=== PATIENT | male | born 1955 | race American Indian/Alaskan Native ===

== ENCOUNTER 2020-03-20 07:45 | Inpatient (IN) | payer OTHER, SELFPAY ==
[2020-03-20 09:27] LABS: Basophils % (Auto) 0.3 % (0.0-1.8); Eosinophils % (Auto) 0.1 % (0.0-4.3); Hematocrit 43.5 % (35.5-45.6); Hemoglobin 14.3 gm/dl (11.8-15.2); Lymphocytes # (Auto) 0.7 K/mm3 (1.2-5.4); Lymphocytes % (Auto) 11.4 % (13.4-35.0); Mean Corpuscular HGB Conc 33 % (32-34); Mean Corpuscular Volume 82 fl (84-94); Monocytes # (Auto) 0.4 K/mm3 (0.0-0.8); Monocytes % (Auto) 6.2 % (0.0-7.3); Platelet Count 296 K/mm3 (140-440); Red Blood Count 5.29 M/mm3 (3.65-5.03); Red Cell Distribution Width 14.5 % (13.2-15.2)
--- NOTE | 2020-03-20 09:37 | XRay Report ---
CHEST 2 VIEWS 0930 INDICATION / CLINICAL INFORMATION: Upper respiratory systems, cough, shortness of breath, duration 4- 5 days COMPARISON: None available. FINDINGS: SUPPORT DEVICES: None. HEART / MEDIASTINUM: No significant abnormality. LUNGS / PLEURA: Lateral view is blurred by motion. No definite pleural effusions are seen. Bibasilar atelectatic changes are noted. Bilateral patchy areas of pulmonary opacity are seen which could repre sent patchy pneumonic infiltrate. No dense consolidation is seen. The possibility of viral pneumonia certainly cannot be excluded. No pneumothorax. ADDITIONAL FINDINGS: No significant additional findings. IMPRESSION: Bilateral patchy possible infiltrates as discussed above Signer Name: Chris Terry MD Signed: 03/20/2020 9:33 AM Workstation Name: [id number]
--- NOTE | 2020-03-20 09:40 | Emergency Department Report ---
ED Shortness of Breath HPI - General Chief Complaint: Dyspnea/Respdistress Stated Complaint: ABRAHAM Time Seen by Provider: 03/20/20 08:40 Source: patient Mode of arrival: Ambulatory Limitations: No Limitations - History of Present Illness Initial Comments: Patient is a 64-year-old male presents emergency room with complaints of shortness of breath that began this morning. He states he has had cold-like symptoms for the last 3 to 4 days. He states that this morning when he woke up he began to feel short of breath. He states that when he walked to the bathroom from his bedroom which is a short distance he began to feel short of breath. He has associated dry cough and chills. He denies any nausea, vomiting, diarrhea, chest pain, abdominal pain. He denies any known sick contacts. He denies any recent travel. He denies any past medical history. No allergies to medications. He denies any recent surgery, recent immobilization, hormone use, recent travel. - Related Data Home Medications Medication Instructions Recorded Confirmed Last Taken No Known Home Medications [No 03/20/20 03/20/20 Unknown Reported Home Medications] Allergies Allergy/AdvReac Type Severity Reaction Status Date / Time No Known Allergies Allergy Unverified 03/20/20 08:00 ED Review of Systems ROS: Stated complaint: ABRAHAM Other details as noted in HPI Comment: All other systems reviewed and negative ED Past Medical Hx - Past Medical History Hx Hypertension: Yes - Surgical History Additional Surgical History: right ankle - Social History Smoking Status: Never Smoker - Medications Home Medications: Home Medications Medication Instructions Recorded Confirmed Last Taken Type No Known Home Medications [No 03/20/20 03/20/20 Unknown History Reported Home Medications] ED Physical Exam - General Limitations: No Limitations General appearance: alert, in no apparent distress - Head Head exam: Present: atraumatic, normocephalic - Eye Eye exam: Present: normal appearance - ENT ENT exam: Present: mucous membranes moist - Respiratory Respiratory exam: Present: other (poor inspiratory effort). Absent: respiratory distress, wheezes, rales, rhonchi, stridor, chest wall tenderness, accessory muscle use, prolonged expiratory - Cardiovascular Cardiovascular Exam: Present: regular rate, normal rhythm, normal heart sounds. Absent: systolic murmur, diastolic murmur, rubs, gallop - Neurological Exam Neurological exam: Present: alert, oriented X3 - Psychiatric Psychiatric exam: Present: normal affect, normal mood - Skin Skin exam: Present: warm, dry, intact ED Course Vital Signs 03/20/20 03/20/20 03/20/20 07:57 11:17 11:42 Temperature 98.1 F 98.5 F Pulse Rate 89 87 Respiratory 19 20 20 Rate Blood Pressure 186/116 Blood Pressure 176/105 [Right] O2 Sat by Pulse 92 92 Oximetry - Consultations Consultation #1: 03/20/20 11:[address] Cervantes, ER attending who agrees with admission 03/20/20 11:[address] Corona, hospitalist who will accept and resume care of patient, will admit to hospital service ED Medical Decision Making - Lab Data Result diagrams: 03/20/20 09:11 03/20/20 10:05 Vital Signs 03/20/20 03/20/20 03/20/20 07:57 11:17 11:42 Temperature 98.1 F 98.5 F Pulse Rate 89 87 Respiratory 19 20 20 Rate Blood Pressure 186/116 Blood Pressure 176/105 [Right] O2 Sat by Pulse 92 92 Oximetry Lab Results 03/20/20 03/20/20 03/20/20 Range/Units 09:11 09:11 10:05 WBC 6.0 (4.5-11.0) K/mm3 RBC 5.29 H (3.65-5.03) M/mm3 Hgb 14.3 (11.8-15.2) gm/dl Hct 43.5 (35.5-45.6) % MCV 82 L (84-94) fl MCH 27 L (28-32) pg MCHC 33 (32-34) % RDW 14.5 (13.2-15.2) % Plt Count 296 (140-440) K/mm3 Lymph % (Auto) 11.4 L (13.4-35.0) % Granite % (Auto) 6.2 (0.0-7.3) % Eos % (Auto) 0.1 (0.0-4.3) % Baso % (Auto) 0.3 (0.0-1.8) % Lymph # (Auto) 0.7 L (1.2-5.4) K/mm3 Granite # (Auto) 0.4 (0.0-0.8) K/mm3 Eos # (Auto) 0.0 (0.0-0.4) K/mm3 Baso # (Auto) 0.0 (0.0-0.1) K/mm3 Seg Neutrophils % 82.0 H (40.0-70.0) % Seg Neutrophils # 4.9 (1.8-7.7) K/mm3 D-Dimer 557.35 H (0-234) ng/mlDDU Sodium 135 L (137-145) mmol/L Potassium 4.0 (3.6-5.0) mmol/L Chloride 96.8 L (98-107) mmol/L Carbon Dioxide 26 (22-30) mmol/L Anion Gap 16 mmol/L BUN 12 (9-20) mg/dL Creatinine 1.1 (0.8-1.3) mg/dL Estimated GFR > 60 ml/min BUN/Creatinine Ratio 11 % Glucose 125 H (75-100) mg/dL Calcium 9.5 (8.4-10.2) mg/dL Ferritin (30.0-300.0) ng/mL Total Bilirubin 0.40 (0.1-1.2) mg/dL AST 58 H (5-40) units/L ALT 30 (7-56) units/L Alkaline Phosphatase 81 (35-129) units/L Lactate Dehydrogenase (91-180) units/L C-Reactive Protein (0.00-1.30) mg/dL NT-Pro-B Natriuret Pep (0-900) pg/mL Total Protein 9.2 H (6.3-8.2) g/dL Albumin 3.9 (3.9-5) g/dL Albumin/Globulin Ratio 0.7 % Procalcitonin (<0.15) ng/mL Coronavirus (PCR) (Negative) 03/20/20 03/20/20 03/20/20 Range/Units 10:05 10:05 10:05 WBC (4.5-11.0) K/mm3 RBC (3.65-5.03) M/mm3 Hgb (11.8-15.2) gm/dl Hct (35.5-45.6) % MCV (84-94) fl MCH (28-32) pg MCHC (32-34) % RDW (13.2-15.2) % Plt Count (140-440) K/mm3 Lymph % (Auto) (13.4-35.0) % Granite % (Auto) (0.0-7.3) % Eos % (Auto) (0.0-4.3) % Baso % (Auto) (0.0-1.8) % Lymph # (Auto) (1.2-5.4) K/mm3 Granite # (Auto) (0.0-0.8) K/mm3 Eos # (Auto) (0.0-0.4) K/mm3 Baso # (Auto) (0.0-0.1) K/mm3 Seg Neutrophils % (40.0-70.0) % Seg Neutrophils # (1.8-7.7) K/mm3 D-Dimer (0-234) ng/mlDDU Sodium (137-145) mmol/L Potassium (3.6-5.0) mmol/L Chloride (98-107) mmol/L Carbon Dioxide (22-30) mmol/L Anion Gap mmol/L BUN (9-20) mg/dL Creatinine (0.8-1.3) mg/dL Estimated GFR ml/min BUN/Creatinine Ratio % Glucose 115 H (75-100) mg/dL Calcium (8.4-10.2) mg/dL Ferritin 838.1 H (30.0-300.0) ng/mL Total Bilirubin (0.1-1.2) mg/dL AST (5-40) units/L ALT (7-56) units/L Alkaline Phosphatase (35-129) units/L Lactate Dehydrogenase 471 H (91-180) units/L C-Reactive Protein 4.30 H (0.00-1.30) mg/dL NT-Pro-B Natriuret Pep 133.0 (0-900) pg/mL Total Protein (6.3-8.2) g/dL Albumin (3.9-5) g/dL Albumin/Globulin Ratio % Procalcitonin < 0.05 (<0.15) ng/mL Coronavirus (PCR) (Negative) 03/20/20 Range/Units 11:17 WBC (4.5-11.0) K/mm3 RBC (3.65-5.03) M/mm3 Hgb (11.8-15.2) gm/dl Hct (35.5-45.6) % MCV (84-94) fl MCH (28-32) pg MCHC (32-34) % RDW (13.2-15.2) % Plt Count (140-440) K/mm3 Lymph % (Auto) (13.4-35.0) % Granite % (Auto) (0.0-7.3) % Eos % (Auto) (0.0-4.3) % Baso % (Auto) (0.0-1.8) % Lymph # (Auto) (1.2-5.4) K/mm3 Granite # (Auto) (0.0-0.8) K/mm3 Eos # (Auto) (0.0-0.4) K/mm3 Baso # (Auto) (0.0-0.1) K/mm3 Seg Neutrophils % (40.0-70.0) % Seg Neutrophils # (1.8-7.7) K/mm3 D-Dimer (0-234) ng/mlDDU Sodium (137-145) mmol/L Potassium (3.6-5.0) mmol/L Chloride (98-107) mmol/L Carbon Dioxide (22-30) mmol/L Anion Gap mmol/L BUN (9-20) mg/dL Creatinine (0.8-1.3) mg/dL Estimated GFR ml/min BUN/Creatinine Ratio % Glucose (75-100) mg/dL Calcium (8.4-10.2) mg/dL Ferritin (30.0-300.0) ng/mL Total Bilirubin (0.1-1.2) mg/dL AST (5-40) units/L ALT (7-56) units/L Alkaline Phosphatase (35-129) units/L Lactate Dehydrogenase (91-180) units/L C-Reactive Protein (0.00-1.30) mg/dL NT-Pro-B Natriuret Pep (0-900) pg/mL Total Protein (6.3-8.2) g/dL Albumin (3.9-5) g/dL Albumin/Globulin Ratio % Procalcitonin (<0.15) ng/mL Coronavirus (PCR) Positive A (Negative) - Radiology Data Radiology results: report reviewed Ordering Physician: MARINE GR Date of Service: 03/20/20 Procedure(s): XR chest routine 2V Accession Number(s): [id number] cc: MARINE GR Fluoro Time In Minutes: CHEST 2 VIEWS 0930 INDICATION / CLINICAL INFORMATION: Upper respiratory systems, cough, shortness of breath, duration 4-5 days COMPARISON: None available. FINDINGS: SUPPORT DEVICES: None. HEART / MEDIASTINUM: No significant abnormality. LUNGS / PLEURA: Lateral view is blurred by motion. No definite pleural effusions are seen. Bibasilar atelectatic changes are noted. Bilateral patchy areas of pulmonary opacity are seen which could represent patchy pneumonic infiltrate. No dense consolidation is seen. The possibility of viral pneumonia certainly cannot be excluded. No pneumothorax. ADDITIONAL FINDINGS: No significant additional findings. IMPRESSION: Bilateral patchy possible infiltrates as discussed above Signer Name: Chris Terry MD Signed: 03/20/2020 9:33 AM Workstation Name: [id number] Transcribed By: GJ Dictated By: Chris Terry MD Electronically Authenticated By: Chris Terry MD Signed Date/Time: 03/20/20932 DD/ 0 TD/TT: - Medical Decision Making Patient is a 64-year-old male presents emergency room with complaints of shortness of breath that began this morning. He states he has had cold-like symptoms for the last 3 to 4 days. He states that this morning when he woke up he began to feel short of breath. He states that when he walked to the bathroom from his bedroom which is a short distance he began to feel short of breath. He has associated dry cough and chills. He denies any nausea, vomiting, diarrhea, chest pain, abdominal pain. He denies any known sick contacts. He denies any recent travel. He denies any past medical history. No allergies to medications. He denies any recent surgery, recent immobilization, hormone use, recent travel. Vitals with elevated blood pressure and hypoxia. Patient is 92% on room air and has no history of any lung conditions. Initial labs are stable. Chest x-ray Bilateral patchy possible infiltrates as discussed above. Chest x-ray is concerning for Covid 19 pneumonia, patient is 64 years old, his oxygen saturation is 92% on room air, patient meets admission criteria. Patient given ceftriaxone, azithromycin, Zofran because he began to feel nauseated. spoke to Dr. Cervantes, ER attending who agrees with admission spoke to Dr. Corona, hospitalist who will accept and resume care of patient, will admit to hospital service - Differential Diagnosis PNA, URI, viral syndrome, bronchitis, COVID 19, CHF, pleural effusion Critical care attestation.: If time is entered above; I have spent that time in minutes in the direct care of this critically ill patient, excluding procedure time. ED Disposition Clinical Impression: Hypoxia, Suspected COVID-19 virus infection Bilateral pneumonia Qualifiers: Pneumonia type: due to unspecified organism Lung location: unspecified part of lung Qualified Code(s): J18.9 - Pneumonia, unspecified organism Disposition: 09 OP ADMIT IP TO THIS HOSP Is pt being admited?: Yes Does the pt Need Aspirin: No Condition: Fair Time of Disposition: 11:34
[2020-03-20] MEDS ORDERED: cefTRIAXone/NS 2 GM/100 ML 2 GM/100 ML BAG IV ONE (09:41)
[2020-03-20 09:50] LABS: Alanine Aminotransferase 30 units/L (7-56); Albumin 3.9 g/dL (3.9-5); BUN/Creatinine Ratio 11; Blood Urea Nitrogen 12 mg/dL (9-20); Calcium 9.5 mg/dL (8.4-10.2); Hemolysis Index 1
[2020-03-20] MEDS ORDERED: AZITHROMYCIN 500 MG in SODIUM CHLORIDE 0.9% 250ML 250 ML IV ONE (10:00)
[2020-03-20] MEDS ORDERED: ONDANSETRON 4 MG/2 ML INJ IV ONE (11:31)
[2020-03-20] MEDS ORDERED: dexAMETHasone 4 MG/ML VIAL IV ONE (11:44)
[2020-03-20 11:58] LABS: C-Reactive Protein 4.3 mg/dL (0.00-1.30)
[2020-03-20] MEDS ORDERED: ACETAMINOPHEN 325 MG TAB PO PRN (12:00)
[2020-03-20] MEDS ORDERED: ONDANSETRON 4 MG/2 ML INJ IV PRN (12:00)
--- NOTE | 2020-03-20 12:00 | History and Physical Report ---
History of Present Illness Chief complaint: I cannot breathe History of present illness: 64 YO Male with Obesity Hypoventilation Syndrome, HTN presents to ED for evaluation. Patient states that he has experienced shortness of breath over the past 3 to 4 days with progressively worsening symptoms over the same timeframe. Patient states that he awoke from sleep this morning feeling more short of breath. Patient knowledges dyspnea with exertion, decreased exercise tolerance, fatigue, malaise, muscle aches, dry cough. Patient transported to [facility] via private vehicle for further care and evaluation. Patient seen and evaluated in the emergency department. All lab and imaging studies reviewed. Patient was found to have a pulse oximetry of 87% with exertion on room air which is consistent with acute hypoxemic respiratory failure. Patient chest x-ray showed evidence of bilateral pneumonia. Patient admitted to medical floor and initiated on pneumonia protocol as well as coronavirus protocol. Coronavirus PC R ordered in the emergency department. Patient denies fever, chills, chest pain, palpitations, skin rash, recent ill contacts, or known exposure to COVID- 19. No prior admission for review. No medication listed at time of admission for reconciliation. Advanced care planning conducted in ED. Past History Past Medical History: hypertension, other (See HPI) Past Surgical History: Other (Right ankle surgery) Social history: single Family history: denies: no significant family history Medications and Allergies Allergies Allergy/AdvReac Type Severity Reaction Status Date / Time No Known Allergies Allergy Unverified 03/20/20 08:00 Home Medications Medication Instructions Recorded Confirmed Last Taken Type No Known Home Medications [No 03/20/20 03/20/20 Unknown History Reported Home Medications] Active Meds: Active Medications Acetaminophen (Tylenol) 650 mg PO Q4H PRN PRN Reason: Pain MILD(1-3)/Fever >100.5/MORGAN Heparin Sodium (Porcine) (Heparin) 5,000 unit SUB-Q Q12HR NAA Ceftriaxone Sodium (Rocephin/Ns 2 Gm/100 Ml) 2 gm in 100 mls @ 200 mls/hr IV Q24HR NAA; Protocol Azithromycin 500 mg/ Sodium (Chloride) 250 mls @ 250 mls/hr IV Q24HR NAA; Pr otocol Ondansetron HCl (Zofran) 4 mg IV Q8H PRN PRN Reason: Nausea And Vomiting Sodium Chloride (Sodium Chloride Flush Syringe 10 Ml) 10 ml IV BID NAA Sodium Chloride (Sodium Chloride Flush Syringe 10 Ml) 10 ml IV PRN PRN PRN Reason: LINE FLUSH Review of Systems Constitutional: fatigue, weakness, malaise, no weight loss, no weight gain, no fever, no chills Ears, nose, mouth and throat: no ear pain, no ear discharge, no tinnitis, no decreased hearing, no nose pain Cardiovascular: no chest pain, no orthopnea, no edema, no syncope Respiratory: cough, shortness of breath, dyspnea on exertion, no excessive sputum, no hemoptysis, no congestion, no pain, no pain on inspiration Gastrointestinal: no nausea, no vomiting, no diarrhea, no constipation Genitourinary Male: no dysuria, no hematuria, no flank pain, no discharge, no urinary frequency, no urinary hesitancy, no nocturia Rectal: no pain, no incontinence, no bleeding Musculoskeletal: no neck stiffness, no arm numbness/tingling, no low back pain, no shooting leg pain Integumentary: no rash, no pruritis, no redness, no sores, no wounds Neurological: no head injury, no transient paralysis, no paralysis, no weakness, no parathesias, no tingling, no seizures Psychiatric: no anxiety, no memory loss, no sleep disturbances, no hypersomnia, no change in libido, no suicidal ideation Endocrine: no cold intolerance, no heat intolerance, no excessive thirst, no polyuria, no nocturia, no excessive sweating Hematologic/Lymphatic: no easy bruising, no easy bleeding Allergic/Immunologic: no urticaria, no wheezing Exam - Constitutional Vitals: Temp Pulse Resp BP Pulse Ox 98.5 F 87 20 176/105 92 03/20/20 11:17 03/20/20 11:17 03/20/20 11:42 03/20/20 11:17 03/20/20 11:17 General appearance: Present: mild distress, obese - EENT Eyes: Present: PERRL ENT: hearing intact, clear oral mucosa - Neck Neck: Present: supple, normal ROM - Respiratory Respiratory effort: labored, accessory muscle use Respiratory: bilateral: diminished, rhonchi - Cardiovascular Heart Sounds: Present: S1 & S2. Absent: rub, click - Extremities Extremities: pulses symmetrical, No edema Peripheral Pulses: within normal limits - Abdominal General gastrointestinal: Present: soft, non-tender, non-distended, normal bowel sounds Male genitourinary: Present: normal - Integumentary Integumentary: Present: clear, warm, dry - Musculoskeletal Musculoskeletal: gait normal, strength equal bilaterally - Psychiatric Psychiatric: appropriate mood/affect, intact judgment & insight - Neurologic Neurologic: CNII-XII intact, moves all extremities Results - Labs CBC & Chem 7: 03/20/20 09:11 03/20/20 10:05 Labs: Abnormal lab results 03/20/20 03/20/20 03/20/20 Range/Units 09:11 09:11 10:05 RBC 5.29 H (3.65-5.03) M/mm3 MCV 82 L (84-94) fl MCH 27 L (28-32) pg Lymph % (Auto) 11.4 L (13.4-35.0) % Lymph # (Auto) 0.7 L (1.2-5.4) K/mm3 Seg Neutrophils % 82.0 H (40.0-70.0) % D-Dimer 557.35 H (0-234) ng/mlDDU Sodium 135 L (137-145) mmol/L Chloride 96.8 L (98-107) mmol/L Glucose 125 H (75-100) mg/dL Ferritin (30.0-300.0) ng/mL AST 58 H (5-40) units/L Lactate Dehydrogenase (91-180) units/L C-Reactive Protein (0.00-1.30) mg/dL Total Protein 9.2 H (6.3-8.2) g/dL 03/20/20 03/20/20 Range/Units 10:05 10:05 RBC (3.65-5.03) M/mm3 MCV (84-94) fl MCH (28-32) pg Lymph % (Auto) (13.4-35.0) % Lymph # (Auto) (1.2-5.4) K/mm3 Seg Neutrophils % (40.0-70.0) % D-Dimer (0-234) ng/mlDDU Sodium (137-145) mmol/L Chloride (98-107) mmol/L Glucose 115 H (75-100) mg/dL Ferritin 838.1 H (30.0-300.0) ng/mL AST (5-40) units/L Lactate Dehydrogenase 471 H (91-180) units/L C-Reactive Protein 4.30 H (0.00-1.30) mg/dL Total Protein (6.3-8.2) g/dL Assessment and Plan - Patient Problems (1) Acute hypoxemic respiratory failure Current Visit: Yes Status: Acute Plan to address problem: Supplemental oxygen, nebulizer therapy via MDI spacer, prone positioning while in bed, incentive spirometry, chest x-ray. Supportive care. Pulmonary toilet. (2) Obesity hypoventilation syndrome Current Visit: Yes Status: Acute Plan to address problem: Balanced diet, increase physical activity at discharge, outpatient pulmonary follow-up for sleep study. (3) Bilateral pneumonia Current Visit: Yes Status: Acute Qualifiers: Pneumonia type: due to unspecified organism Lung location: unspecified part of lung Qualified Code(s): J18.9 - Pneumonia, unspecified organism Plan to address problem: Pneumonia protocol: Chest x-ray, IV antibiotic therapy, nebulizer therapy, pulse oximetry, supportive care. (4) Suspected COVID-19 virus infection Current Visit: Yes Status: Acute Plan to address problem: Coronavirus protocol: Contact precautions, isolation precautions, IV steroid therapy, IV antibiotic therapy, prone positioning while in bed, supplemental oxygen, pulse oximetry. (5) DVT prophylaxis Current Visit: Yes Status: Acute Plan to address problem: SCD to bilateral lower extremities while in bed, patient is ambulatory. (6) Advance care planning Current Visit: Yes Status: Acute Plan to address problem: Disease education conducted, patient is full code, prognosis discussed, care plan discussed, patient knowledges understanding and agreement with care plan, +30 minutes.
[2020-03-20] MEDS: methylPREDNISolone Sod Succinate 40 MG/1 ML INJ IV SCH ×2 (15:13→22:09)
[2020-03-20] MEDS: HEPARIN 5,000 UNIT/1 ML VIAL SUB-Q SCH (22:08)
[2020-03-21] MEDS: methylPREDNISolone Sod Succinate 40 MG/1 ML INJ IV SCH ×3 (05:35→22:02)
[2020-03-21 06:28] LABS: Basophils % (Auto) 0.2 % (0.0-1.8); Hematocrit 40.2 % (35.5-45.6); Hemoglobin 13.1 gm/dl (11.8-15.2); Lymphocytes # (Auto) 0.8 K/mm3 (1.2-5.4); Lymphocytes % (Auto) 16.3 % (13.4-35.0); Mean Corpuscular HGB Conc 33 % (32-34); Mean Corpuscular Volume 82 fl (84-94); Monocytes # (Auto) 0.4 K/mm3 (0.0-0.8); Monocytes % (Auto) 7.6 % (0.0-7.3); Platelet Count 330 K/mm3 (140-440); Red Blood Count 4.88 M/mm3 (3.65-5.03); Red Cell Distribution Width 14.6 % (13.2-15.2)
[2020-03-21 06:44] LABS: Alanine Aminotransferase 30 units/L (7-56); Albumin 3.6 g/dL (3.9-5); BUN/Creatinine Ratio 18; Blood Urea Nitrogen 22 mg/dL (9-20); Calcium 9.1 mg/dL (8.4-10.2); Hemolysis Index 3
[2020-03-21] MEDS ORDERED: AZITHROMYCIN 500 MG in SODIUM CHLORIDE 0.9% 250ML 250 ML IV SCH (10:00)
[2020-03-21] MEDS: HEPARIN 5,000 UNIT/1 ML VIAL SUB-Q SCH (10:59)
[2020-03-21] MEDS: cefTRIAXone/NS 2 GM/100 ML 2 GM/100 ML BAG IV SCH (10:59)
--- NOTE | 2020-03-21 11:13 | Progress Note ---
Assessment and Plan Assessment and plan: Acute hypoxemic respiratory failure Supplemental oxygen, nebulizer therapy via MDI spacer, prone positioning while in bed, incentive spirometry, chest x-ray. Supportive care. Pulmonary toilet. Obesity hypoventilation syndrome Balanced diet, increase physical activity at discharge, outpatient pulmonary follow-up for sleep study. Bilateral pneumonia Pneumonia protocol: Chest x-ray, IV antibiotic therapy, nebulizer therapy, pulse oximetry, supportive care. COVID-19 virus infection Coronavirus protocol: Contact precautions, isolation precautions, IV steroid therapy, IV antibiotic therapy, prone positioning while in bed, supplemental oxygen, pulse oximetry. Check inflammatory markers and consult ID. Covid testing positive on 03/20 DVT prophylaxis SCD to bilateral lower extremities while in bed, patient is ambulatory. Add Lovenox History Interval history: No new issues overnight. Hospitalist Physical - Constitutional Vitals: Temp Pulse Resp BP Pulse Ox 97.9 F 66 20 168/106 96 03/21/20 05:33 03/21/20 05:33 03/21/20 05:33 03/21/20 05:33 03/21/20 08:41 General appearance: Present: mild distress, obese - EENT Eyes: Present: PERRL, EOM intact ENT: hearing intact, clear oral mucosa, dentition normal - Neck Neck: Present: supple, normal ROM - Respiratory Respiratory effort: normal Respiratory: bilateral: CTA - Cardiovascular Rhythm: regular Heart Sounds: Present: S1 & S2. Absent: gallop, rub - Extremities Extremities: no ischemia, No edema, Full ROM - Abdominal General gastrointestinal: soft, non-tender, non-distended, normal bowel sounds - Integumentary Integumentary: Present: clear, warm, dry - Neurologic Neurologic: CNII-XII intact, moves all extremities Results - Labs CBC & Chem 7: 03/21/20 05:02 03/21/20 05:02 Labs: Laboratory Last Values WBC 5.1 K/mm3 (4.5-11.0) 03/21/20 05:02 RBC 4.88 M/mm3 (3.65-5.03) 03/21/20 05:02 Hgb 13.1 gm/dl (11.8-15.2) 03/21/20 05:02 Hct 40.2 % (35.5-45.6) 03/21/20 05:02 MCV 82 fl (84-94) L 03/21/20 05:02 MCH 27 pg (28-32) L 03/21/20 05:02 MCHC 33 % (32-34) 03/21/20 05:02 RDW 14.6 % (13.2-15.2) 03/21/20 05:02 Plt Count 330 K/mm3 (140-440) 03/21/20 05:02 Lymph % (Auto) 16.3 % (13.4-35.0) 03/21/20 05:02 Hernando % (Auto) 7.6 % (0.0-7.3) H 03/21/20 05:02 Eos % (Auto) 0.0 % (0.0-4.3) 03/21/20 05:02 Baso % (Auto) 0.2 % (0.0-1.8) 03/21/20 05:02 Lymph # (Auto) 0.8 K/mm3 (1.2-5.4) L 03/21/20 05:02 [place]ando # (Auto) 0.4 K/mm3 (0.0-0.8) 03/21/20 05:02 Eos # (Auto) 0.0 K/mm3 (0.0-0.4) 03/21/20 05:02 Baso # (Auto) 0.0 K/mm3 (0.0-0.1) 03/21/20 05:02 Seg Neutrophils % 75.9 % (40.0-70.0) H 03/21/20 05:02 Seg Neutrophils # 3.8 K/mm3 (1.8-7.7) 03/21/20 05:02 D-Dimer 557.35 ng/mlDDU (0-234) H 03/20/20 10:05 Sodium 137 mmol/L (137-145) 03/21/20 05:02 Potassium 3.8 mmol/L (3.6-5.0) 03/21/20 05:02 Chloride 101.2 mmol/L (98-107) 03/21/20 05:02 Carbon Dioxide 21 mmol/L (22-30) L 03/21/20 05:02 Anion Gap 19 mmol/L 03/21/20 05:02 BUN 22 mg/dL (9-20) H 03/21/20 05:02 Creatinine 1.2 mg/dL (0.8-1.3) 03/21/20 05:02 Estimated GFR > 60 ml/min 03/21/20 05:02 BUN/Creatinine Ratio 18 % 03/21/20 05:02 Glucose 168 mg/dL (75-100) H 03/21/20 05:02 Calcium 9.1 mg/dL (8.4-10.2) 03/21/20 05:02 Ferritin 838.1 ng/mL (30.0-300.0) H 03/20/20 10:05 Total Bilirubin 0.30 mg/dL (0.1-1.2) 03/21/20 05:02 AST 58 units/L (5-40) H 03/21/20 05:02 ALT 30 units/L (7-56) 03/21/20 05:02 Alkaline Phosphatase 68 units/L (35-129) 03/21/20 05:02 Lactate Dehydrogenase 471 units/L (91-180) H 03/20/20 10:05 C-Reactive Protein 4.30 mg/dL (0.00-1.30) H 03/20/20 10:05 NT-Pro-B Natriuret Pep 133.0 pg/mL (0-900) 03/20/20 10:05 Total Protein 8.5 g/dL (6.3-8.2) H 03/21/20 05:02 Albumin 3.6 g/dL (3.9-5) L 03/21/20 05:02 Albumin/Globulin Ratio 0.7 % 03/21/20 05:02 Procalcitonin < 0.05 ng/mL (<0.15) 03/20/20 10:05 Coronavirus (PCR) Positive (Negative) A 03/20/20 11:17 Microbiology: Microbiology 03/20/20 10:05 Peripheral/Venous Blood Culture - Preliminary NO GROWTH AFTER 24 HOURS 03/20/20 10:05 Peripheral/Venous Blood Culture - Preliminary NO GROWTH AFTER 24 HOURS Fair/IV: Voiding Method Toilet IV Catheter Type [Left INT / Saline Lock Antecubital] Active Medications - Current Medications Current Medications: Generic Name Dose Route Start Last Admin Trade Name Freq PRN Reason Stop Dose Admin Acetaminophen 650 mg 03/20/20 12:00 03/20/20 22:08 Tylenol PO 650 mg Q4H PRN Administration Pain MILD(1-3)/Fever >100.5/MORGAN Heparin Sodium (Porcine) 5,000 unit 03/20/20 22:00 03/21/20 10:59 Heparin SUB-Q 5,000 unit Q12HR NAA Administration Ceftriaxone Sodium 2 gm in 100 mls @ 200 mls/hr 03/21/20 10:00 03/21/20 10:59 Rocephin/Ns 2 Gm/100 Ml IV 200 mls/hr Q24HR NAA Administration Protocol Azithromycin 500 mg/ Sodium 250 mls @ 250 mls/hr 03/21/20 10:00 03/21/20 11:08 Chloride IV 03/24/20 10:59 250 mls/hr Q24HR NAA Administration Protocol Methylprednisolone Sodium Succinate 40 mg 03/20/20 14:00 03/21/20 05:35 Solu-Medrol IV 40 mg Q8HR NAA Administration Ondansetron HCl 4 mg 03/20/20 12:00 Zofran IV Q8H PRN Nausea And Vomiting Sodium Chloride 10 ml 03/20/20 22:00 03/21/20 11:00 Sodium Chloride Flush Syringe 10 Ml IV 10 ml BID NAA Administration Sodium Chloride 10 ml 03/20/20 12:00 Sodium Chloride Flush Syringe 10 Ml IV PRN PRN LINE FLUSH
[2020-03-21 12:01] LABS: C-Reactive Protein 4.1 mg/dL (0.00-1.30)
[2020-03-21] MEDS: ENOXAPARIN 40 MG/0.4 ML INJ SUB-Q SCH (22:01)
[2020-03-22] MEDS: methylPREDNISolone Sod Succinate 40 MG/1 ML INJ IV SCH ×3 (05:34→23:01)
[2020-03-22 06:40] LABS: Basophils % (Auto) 0.1 % (0.0-1.8); Hematocrit 39.6 % (35.5-45.6); Hemoglobin 12.9 gm/dl (11.8-15.2); Lymphocytes % (Auto) 7.7 % (13.4-35.0); Mean Corpuscular HGB Conc 33 % (32-34); Mean Corpuscular Volume 82 fl (84-94); Monocytes # (Auto) 0.9 K/mm3 (0.0-0.8); Platelet Count 381 K/mm3 (140-440); Red Blood Count 4.81 M/mm3 (3.65-5.03); Red Cell Distribution Width 14.5 % (13.2-15.2)
[2020-03-22 06:52] LABS: BUN/Creatinine Ratio 23; Blood Urea Nitrogen 28 mg/dL (9-20); Calcium 8.9 mg/dL (8.4-10.2); Hemolysis Index 5
--- NOTE | 2020-03-22 09:34 | Progress Note ---
Assessment and Plan Assessment and plan: Acute hypoxemic respiratory failure Supplemental oxygen, nebulizer therapy via MDI spacer, prone positioning while in bed, incentive spirometry, chest x-ray. Supportive care. Pulmonary toilet. Accelerated hypertension obesity hypoventilation syndrome Balanced diet, increase physical activity at discharge, outpatient pulmonary follow-up for sleep study. Bilateral pneumonia Pneumonia protocol: Chest x-ray, IV antibiotic therapy, nebulizer therapy, pulse oximetry, supportive care. COVID-19 virus infection Coronavirus protocol: Contact precautions, isolation precautions, IV steroid therapy, IV antibiotic therapy, prone positioning while in bed, supplemental oxygen, pulse oximetry. Check inflammatory markers and consult ID. Covid testing positive on 03/20 DVT prophylaxis SCD to bilateral lower extremities while in bed, patient is ambulatory. Continue Lovenox 03/22/2020. Patient with mildly elevated D-dimer of 431, ferritin 743, LDH 350 and CRP 4.1. Patient with minimal oxygen requirements of nasal cannula 2 L at 94%. Change Solu-Medrol to dexamethasone per ID recommendations. Await ID consultation. Anticipate discharge in the next 1 to 2 days if oxygen requirements are minimal. Patient is exhibiting accelerated hypertension. Start Procardia 60 mg daily History Interval history: No new issues overnight. Hospitalist Physical - Constitutional Vitals: Temp Pulse Resp BP Pulse Ox 98.7 F 66 20 182/105 92 03/22/20 04:30 03/22/20 04:30 03/22/20 04:30 03/22/20 04:30 03/22/20 04:30 General appearance: Present: mild distress, obese - EENT Eyes: Present: PERRL, EOM intact ENT: hearing intact, clear oral mucosa, dentition normal - Neck Neck: Present: supple, normal ROM - Respiratory Respiratory effort: normal Respiratory: bilateral: CTA - Cardiovascular Rhythm: regular Heart Sounds: Present: S1 & S2. Absent: gallop, rub - Extremities Extremities: no ischemia, No edema, Full ROM - Abdominal General gastrointestinal: soft, non-tender, non-distended, normal bowel sounds - Integumentary Integumentary: Present: clear, warm, dry - Neurologic Neurologic: CNII-XII intact, moves all extremities Results - Labs CBC & Chem 7: 03/22/20 05:17 03/22/20 05:17 Labs: Laboratory Last Values WBC 12.8 K/mm3 (4.5-11.0) H 03/22/20 05:17 RBC 4.81 M/mm3 (3.65-5.03) 03/22/20 05:17 Hgb 12.9 gm/dl (11.8-15.2) 03/22/20 05:17 Hct 39.6 % (35.5-45.6) 03/22/20 05:17 MCV 82 fl (84-94) L 03/22/20 05:17 MCH 27 pg (28-32) L 03/22/20 05:17 MCHC 33 % (32-34) 03/22/20 05:17 RDW 14.5 % (13.2-15.2) 03/22/20 05:17 Plt Count 381 K/mm3 (140-440) 03/22/20 05:17 Lymph % (Auto) 7.7 % (13.4-35.0) L 03/22/20 05:17 [place] % (Auto) 7.0 % (0.0-7.3) 03/22/20 05:17 Eos % (Auto) 0.0 % (0.0-4.3) 03/22/20 05:17 Baso % (Auto) 0.1 % (0.0-1.8) 03/22/20 05:17 Lymph # (Auto) 1.0 K/mm3 (1.2-5.4) L 03/22/20 05:17 [place] # (Auto) 0.9 K/mm3 (0.0-0.8) H 03/22/20 05:17 Eos # (Auto) 0.0 K/mm3 (0.0-0.4) 03/22/20 05:17 Baso # (Auto) 0.0 K/mm3 (0.0-0.1) 03/22/20 05:17 Seg Neutrophils % 85.2 % (40.0-70.0) H 03/22/20 05:17 Seg Neutrophils # 10.9 K/mm3 (1.8-7.7) H 03/22/20 05:17 D-Dimer 431.56 ng/mlDDU (0-234) H 03/21/20 11:17 Sodium 137 mmol/L (137-145) 03/22/20 05:17 Potassium 4.2 mmol/L (3.6-5.0) 03/22/20 05:17 Chloride 101.2 mmol/L (98-107) 03/22/20 05:17 Carbon Dioxide 24 mmol/L (22-30) 03/22/20 05:17 Anion Gap 16 mmol/L 03/22/20 05:17 BUN 28 mg/dL (9-20) H 03/22/20 05:17 Creatinine 1.2 mg/dL (0.8-1.3) 03/22/20 05:17 Estimated GFR > 60 ml/min 03/22/20 05:17 BUN/Creatinine Ratio 23 % 03/22/20 05:17 Glucose 165 mg/dL (75-100) H 03/22/20 05:17 Calcium 8.9 mg/dL (8.4-10.2) 03/22/20 05:17 Ferritin 743.3 ng/mL (30.0-300.0) H 03/21/20 11:17 Total Bilirubin 0.30 mg/dL (0.1-1.2) 03/21/20 05:02 AST 58 units/L (5-40) H 03/21/20 05:02 ALT 30 units/L (7-56) 03/21/20 05:02 Alkaline Phosphatase 68 units/L (35-129) 03/21/20 05:02 Lactate Dehydrogenase 350 units/L (91-180) H 03/21/20 11:17 C-Reactive Protein 4.10 mg/dL (0.00-1.30) H 03/21/20 11:17 NT-Pro-B Natriuret Pep 133.0 pg/mL (0-900) 03/20/20 10:05 Total Protein 8.5 g/dL (6.3-8.2) H 03/21/20 05:02 Albumin 3.6 g/dL (3.9-5) L 03/21/20 05:02 Albumin/Globulin Ratio 0.7 % 03/21/20 05:02 Procalcitonin < 0.05 ng/mL (<0.15) 03/21/20 11:17 Coronavirus (PCR) Positive (Negative) A 03/20/20 11:17 Microbiology: Microbiology 03/20/20 10:05 Peripheral/Venous Blood Culture - Preliminary NO GROWTH AFTER 24 HOURS 03/20/20 10:05 Peripheral/Venous Blood Culture - Preliminary NO GROWTH AFTER 24 HOURS Fair/IV: Voiding Method Toilet IV Catheter Type [Left INT / Saline Lock Antecubital] Active Medications - Current Medications Current Medications: Generic Name Dose Route Start Last Admin Trade Name Freq PRN Reason Stop Dose Admin Acetaminophen 650 mg 03/20/20 12:00 03/20/20 22:08 Tylenol PO 650 mg Q4H PRN Administration Pain MILD(1-3)/Fever >100.5/MORGAN Azithromycin 500 mg 03/22/20 10:00 Zithromax PO 03/24/20 10:01 QDAY NAA Enoxaparin Sodium 40 mg 03/21/20 22:00 03/21/20 22:01 Enoxaparin SUB-Q 40 mg QDAY@2200 NAA Administration Protocol Ceftriaxone Sodium 2 gm in 100 mls @ 200 mls/hr 03/21/20 10:00 03/21/20 10:59 Rocephin/Ns 2 Gm/100 Ml IV 200 mls/hr Q24HR NAA Administration Protocol Labetalol HCl 10 mg 03/21/20 18:55 03/22/20 05:34 Labetalol IV 10 mg Q3H PRN Administration Hypertension Methylprednisolone Sodium Succinate 40 mg 03/20/20 14:00 03/22/20 05:34 Solu-Medrol IV 40 mg Q8HR NAA Administration Ondansetron HCl 4 mg 03/20/20 12:00 Zofran IV Q8H PRN Nausea And Vomiting Sodium Chloride 10 ml 03/20/20 22:00 03/22/20 05:35 Sodium Chloride Flush Syringe 10 Ml IV 10 ml BID NAA Administration Sodium Chloride 10 ml 03/20/20 12:00 Sodium Chloride Flush Syringe 10 Ml IV PRN PRN LINE FLUSH
[2020-03-22] MEDS: cefTRIAXone/NS 2 GM/100 ML 2 GM/100 ML BAG IV SCH (09:59)
[2020-03-22] MEDS ORDERED: AZITHROMYCIN 250 MG TAB PO SCH (10:00)
[2020-03-22] MEDS: NIFEdipine XL 60 MG TAB PO SCH (10:04)
--- NOTE | 2020-03-22 14:02 | Consultation ---
History of Present Illness - Reason for Consult Consult date: 03/22/20 Suspected COVID Requesting physician: ELIZABETH GEORGE - History of Present Illness The patient is a 64-year-old male with obesity hypoventilation syndrome, hypertension was admitted to the hospital with cough and shortness of breath going on for 3 to 4 days. He was also having some fatigue, muscle aches, came to the hospital, noted to have hypoxia. Next x-ray was suggestive of bilateral pneumonia. Covid test was ordered and resulted positive. Infectious diseases consulted for additional evaluation. He has remained afebrile here. Review of Systems: reviewed in the chart, unable to obtain directly due to PPE preservation and minimize risk of transmission Past History Past Medical History: hypertension, other (See HPI) Past Surgical History: Other (Right ankle surgery) Social history: single Family history: denies: no significant family history Medications and Allergies Allergies Allergy/AdvReac Type Severity Reaction Status Date / Time No Known Allergies Allergy Unverified 03/20/20 08:00 Home Medications Medication Instructions Recorded Confirmed Last Taken Type No Known Home Medications [No 03/20/20 03/20/20 Unknown History Reported Home Medications] Active Meds: Active Medications Acetaminophen (Tylenol) 650 mg PO Q4H PRN PRN Reason: Pain MILD(1-3)/Fever >100.5/MORGAN Last Admin: 03/20/20 22:08 Dose: 650 mg Documented by: Azithromycin (Zithromax) 500 mg PO QDAY [facility] Stop: 03/24/20 10:01 Last Admin: 03/22/20 10:01 Dose: 500 mg Documented by: Enoxaparin Sodium (Enoxaparin) 40 mg SUB-Q QDAY@2200 NAA; Protocol Last Admin: 03/21/20 22:01 Dose: 40 mg Documented by: Ceftriaxone Sodium (Rocephin/Ns 2 Gm/100 Ml) 2 gm in 100 mls @ 200 mls/hr IV Q24HR NAA; Protocol Last Admin: 03/22/20 09:59 Dose: 200 mls/hr Documented by: Labetalol HCl (Labetalol) 10 mg IV Q3H PRN PRN Reason: Hypertension Last Admin: 03/22/20 14:00 Dose: 10 mg Documented by: Methylprednisolone Sodium Succinate (Solu-Medrol) 40 mg IV Q8HR NAA Last Admin: 03/22/20 13:55 Dose: 40 mg Documented by: Nifedipine (Procardia Xl) 60 mg PO QDAY [facility] Last Admin: 03/22/20 10:04 Dose: 60 mg Documented by: Ondansetron HCl (Zofran) 4 mg IV Q8H PRN PRN Reason: Nausea And Vomiting Sodium Chloride (Sodium Chloride Flush Syringe 10 Ml) 10 ml IV BID [facility] Last Admin: 03/22/20 10:01 Dose: 10 ml Documented by: Sodium Chloride (Sodium Chloride Flush Syringe 10 Ml) 10 ml IV PRN PRN PRN Reason: LINE FLUSH Physical Examination - Physical Exam Narrative exam: Physical Exam (reviewed in chart due to PPE conservation and minimize risk of transmission) Constitutional: limited due to PPE conservation strategy Head, Ears, Nose: limited due to PPE conservation strategy Eyes: limited due to PPE conservation strategy Neck: limited due to PPE conservation strategy Oral: limited due to PPE conservation strategy Cardiovascular: limited due to PPE conservation strategy Respiratory: limited due to PPE conservation strategy GI: limited due to PPE conservation strategy Musculoskeletal: limited due to PPE conservation strategy Skin: limited due to PPE conservation strategy Hem/Lymphatic: limited due to PPE conservation strategy Psych: limited due to PPE conservation strategy Neurological: limited due to PPE conservation strategy - Constitutional Vitals: Vital Signs Temp Pulse Resp BP Pulse Ox 98.0 F 69 20 175/97 94 03/22/20 13:53 03/22/20 14:00 03/22/20 13:53 03/22/20 14:00 03/22/20 13:53 Temperature -Last 24 Hours Temperature 98.0 F Temperature 98.7 F Temperature 98.8 F Temperature 98.2 F Results - Labs CBC & Chem 7: 03/22/20 05:17 03/22/20 05:17 Labs: Abnormal lab results 03/22/20 03/22/20 Range/Units 05:17 05:17 WBC 12.8 H (4.5-11.0) K/mm3 MCV 82 L (84-94) fl MCH 27 L (28-32) pg Lymph % (Auto) 7.7 L (13.4-35.0) % Lymph # (Auto) 1.0 L (1.2-5.4) K/mm3 [place] # (Auto) 0.9 H (0.0-0.8) K/mm3 Seg Neutrophils % 85.2 H (40.0-70.0) % Seg Neutrophils # 10.9 H (1.8-7.7) K/mm3 BUN 28 H (9-20) mg/dL Glucose 165 H (75-100) mg/dL - Imaging and Cardiology Chest x-ray: report reviewed, image reviewed (b/l infiltrates) Assessment and Plan Cultures: SARS CoV2 PCR: Positive A/P: 64-year-old male with obesity hypoventilation syndrome, hypertension : #Bilateral pneumonia: Secondary to COVID-19 #Acute hypoxic respiratory failure: On oxygen supplementation Recs: Continue steroids for at least 10 days IV remdesivir for 5 days ordered prophylactic anticoagulation based on d-dimer per hospital protocol trend ferritin, LDH, d-dimer, CRP every 2-3 days for risk stratification and to assess disease progression procalcitonin is low, antibiotics discontinued Astrid Cash MD, FACP [facility] ([facility]) O: [phone] F: [phone]
[2020-03-22] MEDS ORDERED: REMDESIVIR 100 MG VIAL IV ONE (17:00)
[2020-03-22] MEDS ORDERED: REMDESIVIR 200 MG in SODIUM CHLORIDE 0.9% 250ML 250 ML IV ONE (17:00)
[2020-03-22] MEDS: SODIUM CHLORIDE 0.9% 50 ML IVPB IV SCH (17:39)
[2020-03-22] MEDS: ENOXAPARIN 40 MG/0.4 ML INJ SUB-Q SCH (23:01)
[2020-03-23] MEDS: methylPREDNISolone Sod Succinate 40 MG/1 ML INJ IV SCH ×3 (07:27→21:49)
[2020-03-23] MEDS: NIFEdipine XL 60 MG TAB PO SCH (10:05)
--- NOTE | 2020-03-23 11:03 | Progress Note ---
Assessment and Plan - Patient Problems (1) Acute hypoxemic respiratory failure with hypoxia most likely 2/2 to covid 19 infection Current Visit: Yes Status: Acute Plan to address problem: Continue Supplemental oxygen, and bronchodilator advised on significant of incentive spirometer use Respiratory care, abg and chest x-rays (2) Obesity hypoventilation syndrome Current Visit: Yes Status: Acute Plan to address problem: Discussed lifestyle modification including Balanced diet-more fruits and vegetable Weight management with increased physical activity (3) Bilateral pneumonia 2/2 to covid 19 infection Current Visit: Yes Status: Acute Qualifiers: Pneumonia type: due to unspecified organism Lung location: unspecified part of lung Qualified Code(s): J18.9 - Pneumonia, unspecified organism Plan to address problem: empiric IV antibiotic therapy d/c -prolactin is low Chest x-ray-shows bilateral patch infiltrates Respiratory care-bronchodilator ans oxygen supplement PRN (4) COVID-19 virus infection Current Visit: Yes Status: Acute Plan to address problem: Continue airborne and contact isolation Monitor inflammatory makers-ferritin, LDH, CRP every 2 to 3 days ID following f/u with plan of care Continue systemic steroid and IV remdesivir started-complete in 5 days (5) DVT prophylaxis Current Visit: Yes Status: Acute Plan to address problem: SCD to bilateral lower extremities while in bed, patient is ambulatory. (6) Advance care planning Current Visit: Yes Status: Acute Plan to address problem: patient is full code Subjective Date of service: 03/23/20 Principal diagnosis: Shortness of breath Interval history: Patient seen at bedside-on oxygen at 4 liter n/c-patient not in any active distress He reports shortness of breath mostly with activity like going to the bathroom. Reviewed lab, mar, and v/s Objective - Constitutional Vitals: Vital Signs - 12hr 03/23/20 03/23/20 03/23/20 01:06 04:33 09:32 Temperature 98.5 F Pulse Rate 74 Respiratory 20 Rate Blood Pressure 151/92 O2 Sat by Pulse 90 86 94 Oximetry General appearance: Present: mild distress, well-nourished - EENT Eyes: PERRL, EOM intact ENT: hearing intact, clear oral mucosa Ears: bilateral: normal - Neck Neck: supple, normal ROM - Respiratory Respiratory effort: normal, other (Shortness of breath with activities) Respiratory: bilateral: CTA - Breasts Breasts: normal - Cardiovascular Heart rate: 70 Rhythm: regular Heart Sounds: Present: S1 & S2. Absent: gallop, rub Extremities: pulses intact, No edema, normal color, Full ROM - Gastrointestinal General gastrointestinal: Present: soft, non-tender, non-distended, normal bowel sounds - Genitourinary Male genitourinary: normal - Integumentary Integumentary: clear, warm, dry - Musculoskeletal Musculoskeletal: 1, strength equal bilaterally - Neurologic Neurologic: moves all extremities - Psychiatric Psychiatric: appropriate mood/affect, intact judgment & insight, memory intact, cooperative - Allied health notes Allied health notes reviewed: nursing - Labs CBC & Chem 7: 03/22/20 05:17 03/22/20 05:17
[2020-03-23] MEDS: REMDESIVIR 100 MG in SODIUM CHLORIDE 0.9% 250ML 250 ML IV SCH (21:48)
[2020-03-23] MEDS: ENOXAPARIN 40 MG/0.4 ML INJ SUB-Q SCH (21:49)
[2020-03-23] MEDS: SODIUM CHLORIDE 0.9% 50 ML IVPB IV SCH (21:49)
[2020-03-24] MEDS: methylPREDNISolone Sod Succinate 40 MG/1 ML INJ IV SCH ×3 (05:36→22:05)
[2020-03-24] MEDS: NIFEdipine XL 60 MG TAB PO SCH (09:12)
--- NOTE | 2020-03-24 11:47 | Progress Note ---
Assessment and Plan - Patient Problems (1) Acute hypoxemic respiratory failure with hypoxia most likely 2/2 to covid 19 infection Current Visit: Yes Status: Acute Plan to address problem: Continue Supplemental oxygen, and bronchodilator advised on significant of incentive spirometer use Respiratory care, abg and chest x-rays (2) Obesity hypoventilation syndrome Current Visit: Yes Status: Acute Plan to address problem: Discussed lifestyle modification including Balanced diet-more fruits and vegetable Weight management with increased physical activity (3) Bilateral pneumonia 2/2 to covid 19 infection Current Visit: Yes Status: Acute Qualifiers: Pneumonia type: due to unspecified organism Lung location: unspecified part of lung Qualified Code(s): J18.9 - Pneumonia, unspecified organism Plan to address problem: empiric IV antibiotic therapy d/c -prolactin is low Chest x-ray-shows bilateral patch infiltrates Respiratory care-bronchodilator ans oxygen supplement PRN (4) COVID-19 virus infection Current Visit: Yes Status: Acute Plan to address problem: Continue airborne and contact isolation Monitor inflammatory makers-ferritin, LDH, CRP every 2 to 3 days ID following f/u with plan of care Continue systemic steroid and IV remdesivir started-complete in 5 days Remdesivir stated 03/23/20-complete on 03/26/20 (5) DVT prophylaxis Current Visit: Yes Status: Acute Plan to address problem: SCD to bilateral lower extremities while in bed, patient is ambulatory. (6) Advance care planning Current Visit: Yes Status: Acute Plan to address problem: patient is full code - Patient Problems (1) Hypertension Current Visit: Yes Status: Acute Plan to address problem: Monitor blood pressure Continue current treatment plan Add oral hydralazine 50mg BID Will adjust bp med if needed Subjective Date of service: 03/23/20 Principal diagnosis: Shortness of breath Interval history: Patient seen at bedside-on oxygen at 4 liter n/c-patient not in any active distress patient said he is feeling better today. He denies chest pain and calm without sob on oxygen Will complete remdesivir therapy 03/26/20 Reviewed lab, mar, and v/s Objective - Constitutional Vitals: Vital Signs - 12hr 03/24/20 03/24/20 04:03 10:00 Temperature 97.7 F Pulse Rate 72 Respiratory 16 Rate Blood Pressure 174/91 O2 Sat by Pulse 91 91 Oximetry General appearance: Present: no acute distress, well-nourished - EENT Eyes: PERRL, EOM intact ENT: hearing intact, clear oral mucosa Ears: bilateral: normal - Neck Neck: supple, normal ROM - Respiratory Respiratory effort: normal Respiratory: bilateral: diminished (shortness of breath-requiring oxygen) - Breasts Breasts: normal - Cardiovascular Heart rate: 91 Extremities: pulses intact, No edema, normal color, Full ROM - Gastrointestinal General gastrointestinal: Present: soft, non-tender, non-distended, normal bowel sounds - Genitourinary Male genitourinary: normal - Integumentary Integumentary: clear, warm, dry - Musculoskeletal Musculoskeletal: 1, strength equal bilaterally - Neurologic Neurologic: moves all extremities - Psychiatric Psychiatric: appropriate mood/affect, intact judgment & insight, memory intact, cooperative - Allied health notes Allied health notes reviewed: nursing - Labs CBC & Chem 7: 03/22/20 05:17 03/22/20 05:17
[2020-03-24] MEDS: hydrALAZINE 25 MG TAB PO SCH ×2 (12:55→22:05)
[2020-03-24] MEDS: SODIUM CHLORIDE 0.9% 50 ML IVPB IV SCH (22:04)
[2020-03-24] MEDS: ENOXAPARIN 40 MG/0.4 ML INJ SUB-Q SCH (22:04)
[2020-03-24] MEDS: REMDESIVIR 100 MG in SODIUM CHLORIDE 0.9% 250ML 250 ML IV SCH (22:04)
[2020-03-25] MEDS: methylPREDNISolone Sod Succinate 40 MG/1 ML INJ IV SCH (05:18)
[2020-03-25 06:29] LABS: Hematocrit 46.8 % (35.5-45.6); Hemoglobin 14.9 gm/dl (11.8-15.2); Mean Corpuscular HGB Conc 32 % (32-34); Mean Corpuscular Volume 81 fl (84-94); Platelet Count 525 K/mm3 (140-440); Red Blood Count 5.75 M/mm3 (3.65-5.03); Red Cell Distribution Width 14.6 % (13.2-15.2)
[2020-03-25 06:31] LABS: Basophils % (Auto) 0.1 % (0.0-1.8); Lymphocytes # (Auto) 1.1 K/mm3 (1.2-5.4); Lymphocytes % (Auto) 8.1 % (13.4-35.0); Monocytes # (Auto) 1.1 K/mm3 (0.0-0.8); Monocytes % (Auto) 8.4 % (0.0-7.3)
[2020-03-25 06:52] LABS: BUN/Creatinine Ratio 29; Blood Urea Nitrogen 29 mg/dL (9-20); Calcium 8.9 mg/dL (8.4-10.2); Hemolysis Index 6
[2020-03-25] MEDS ORDERED: NIFEdipine XL 60 MG TAB PO SCH (08:47)
[2020-03-25] MEDS: DEXAMETHASONE 4 MG TAB PO SCH (09:28)
[2020-03-25] MEDS: hydrALAZINE 25 MG TAB PO SCH ×3 (09:28→23:15)
[2020-03-25] MEDS: NIFEdipine XL 90 MG TAB PO SCH (09:29)
--- NOTE | 2020-03-25 15:46 | Progress Note ---
Assessment and Plan Cultures: SARS CoV2 PCR: Positive A/P: 64-year-old male with obesity hypoventilation syndrome, hypertension : #Bilateral pneumonia: Secondary to COVID-19 #Acute hypoxic respiratory failure: On oxygen supplementation Recs: Continue steroids for at least 10 days IV remdesivir for 5 days ordered prophylactic anticoagulation based on d-dimer per hospital protocol trend ferritin, LDH, d-dimer, CRP every 2-3 days for risk stratification and to assess disease progression Okay to discharge from infectious disease perspective when stable from a respiratory standpoint. Tirso Woods MD [facility] ([facility]) O: [phone] F: [phone] Subjective Date of service: 03/25/20 Principal diagnosis: Shortness of breath Interval history: Afebrile, white count slightly elevated now 13.4. Cultures remain negative. On 3 L nasal cannula. Objective - Exam Narrative Exam: Physical exam deferred due to PPE conservation strategy. Please refer to primary team's note. - Constitutional Vitals: Vital Signs Temp Pulse Resp BP Pulse Ox 98.6 F 81 18 170/103 97 03/25/20 11:05 03/25/20 11:05 03/25/20 11:05 03/25/20 11:05 03/25/20 11:05 Temperature -Last 24 Hours Temperature 98.6 F Temperature 98.0 F Temperature 98.2 F - Labs CBC & Chem 7: 03/25/20 05:43 03/25/20 05:43 Labs: Abnormal lab results 03/25/20 03/25/20 03/25/20 Range/Units 05:43 05:43 05:43 WBC 13.4 H (4.5-11.0) K/mm3 RBC 5.75 H (3.65-5.03) M/mm3 Hct 46.8 H (35.5-45.6) % MCV 81 L (84-94) fl MCH 26 L (28-32) pg Plt Count 525 H (140-440) K/mm3 Lymph % (Auto) 8.1 L (13.4-35.0) % [place] % (Auto) 8.4 H (0.0-7.3) % Lymph # (Auto) 1.1 L (1.2-5.4) K/mm3 [place] # (Auto) 1.1 H (0.0-0.8) K/mm3 Seg Neutrophils % 83.4 H (40.0-70.0) % Seg Neutrophils # 11.2 H (1.8-7.7) K/mm3 D-Dimer 456.87 H (0-234) ng/mlDDU Carbon Dioxide 20 L (22-30) mmol/L BUN 29 H (9-20) mg/dL Glucose 206 H (75-100) mg/dL
--- NOTE | 2020-03-25 16:26 | Progress Note ---
Assessment and Plan - Patient Problems (1) Pneumonia due to COVID-19 virus Current Visit: Yes Status: Acute Plan to address problem: 03/20 coronavirus PCR positive 03/20 CXR shows bilateral patchy areas of pulmonary opacity which could represent pneumonic infiltrate Infectious disease consulted Supplemental oxygenation as needed Prone to sleep OOB 3 times daily Empiric antibiotic therapy discontinued due to low procalcitonin Monitor inflammatory markers Contact/droplet precautions Remdesivir therapy 03/23 through 03/26 Pulmonary hygiene (2) Acute hypoxemic respiratory failure Current Visit: Yes Status: Acute Plan to address problem: Supplemental oxygenation as needed Continue bronchodilator Pulmonary hygiene (3) Hypertension Current Visit: Yes Status: Chronic Plan to address problem: Nifedipine and Procardia, titrate as needed Blood pressure monitoring per protocol As needed vasotec for SBP >160 (4) Obesity hypoventilation syndrome Current Visit: Yes Status: Chronic Plan to address problem: Supplemental oxygenation as needed Follow-up outpatient with pulmonology for sleep study and PFTs Weight management with increase physical activity and dietary changes (5) DVT prophylaxis Current Visit: Yes Status: Acute Plan to address problem: SCDs to bilateral lower extremities while in bed Lovenox subcu History Interval history: 64 YO Male with Obesity Hypoventilation Syndrome, HTN presented with shortness of breath over the past 3 to 4 days, dyspnea with exertion, decreased exercise tolerance, fatigue, malaise, muscle aches, and dry cough on 03/20. Patient was found to have a pulse oximetry of 87% with exertion on room air which is consistent with acute hypoxemic respiratory failure. Patient chest x-ray showed evidence of bilateral pneumonia. Patient admitted to medical floor and initiated on pneumonia protocol as well as coronavirus protocol. Infectious disease was consulted. His COVID-19 PCR was positive 03/20. This morning my examination patient remains on supplemental oxygenation and he states that he now feels much better. 03/25: Methylprednisone changed to p.o. dexamethasone p.o. 03/24: 4L NC with no active distress 03/23: 4 L nasal cannula with reported increased shortness of breath with exertion 03/22: Initiated remdesivir therapy and discontinued antibiotic therapy 03/20: methylprednisone IV every 8 hours Hospitalist Physical - Constitutional Vitals: Temp Pulse Resp BP Pulse Ox 98.6 F 81 18 170/103 97 03/25/20 11:05 03/25/20 11:05 03/25/20 11:05 03/25/20 11:05 03/25/20 11:05 General appearance: Present: no acute distress, well-nourished - EENT Eyes: Present: PERRL, EOM intact ENT: clear oral mucosa - Neck Neck: Present: supple - Respiratory Respiratory effort: normal Respiratory: bilateral: diminished - Cardiovascular Rhythm: regular Heart Sounds: Present: S1 & S2. Absent: systolic murmur, diastolic murmur - Extremities Extremities: no ischemia, pulses intact, pulses symmetrical, No edema, normal temperature, normal color, Full ROM Peripheral Pulses: within normal limits - Abdominal General gastrointestinal: soft, non-tender, normal bowel sounds - Integumentary Integumentary: Present: clear, warm, dry - Psychiatric Psychiatric: appropriate mood/affect, cooperative - Neurologic Neurologic: CNII-XII intact, focal deficits, no moves all extremities - Allied Health Allied health notes reviewed: nursing Results - Labs CBC & Chem 7: 03/25/20 05:43 03/25/20 05:43 Labs: Laboratory Last Values WBC 13.4 K/mm3 (4.5-11.0) H 03/25/20 05:43 RBC 5.75 M/mm3 (3.65-5.03) H 03/25/20 05:43 Hgb 14.9 gm/dl (11.8-15.2) 03/25/20 05:43 Hct 46.8 % (35.5-45.6) H 03/25/20 05:43 MCV 81 fl (84-94) L 03/25/20 05:43 MCH 26 pg (28-32) L 03/25/20 05:43 MCHC 32 % (32-34) 03/25/20 05:43 RDW 14.6 % (13.2-15.2) 03/25/20 05:43 Plt Count 525 K/mm3 (140-440) H 03/25/20 05:43 Lymph % (Auto) 8.1 % (13.4-35.0) L 03/25/20 05:43 [place] % (Auto) 8.4 % (0.0-7.3) H 03/25/20 05:43 Eos % (Auto) 0.0 % (0.0-4.3) 03/25/20 05:43 Baso % (Auto) 0.1 % (0.0-1.8) 03/25/20 05:43 Lymph # (Auto) 1.1 K/mm3 (1.2-5.4) L 03/25/20 05:43 [place] # (Auto) 1.1 K/mm3 (0.0-0.8) H 03/25/20 05:43 Eos # (Auto) 0.0 K/mm3 (0.0-0.4) 03/25/20 05:43 Baso # (Auto) 0.0 K/mm3 (0.0-0.1) 03/25/20 05:43 Seg Neutrophils % 83.4 % (40.0-70.0) H 03/25/20 05:43 Seg Neutrophils # 11.2 K/mm3 (1.8-7.7) H 03/25/20 05:43 D-Dimer 456.87 ng/mlDDU (0-234) H 03/25/20 05:43 Sodium 142 mmol/L (137-145) 03/25/20 05:43 Potassium 4.9 mmol/L (3.6-5.0) 03/25/20 05:43 Chloride 106.7 mmol/L (98-107) 03/25/20 05:43 Carbon Dioxide 20 mmol/L (22-30) L 03/25/20 05:43 Anion Gap 20 mmol/L 03/25/20 05:43 BUN 29 mg/dL (9-20) H 03/25/20 05:43 Creatinine 1.0 mg/dL (0.8-1.3) 03/25/20 05:43 Estimated GFR > 60 ml/min 03/25/20 05:43 BUN/Creatinine Ratio 29 % 03/25/20 05:43 Glucose 206 mg/dL (75-100) H 03/25/20 05:43 Calcium 8.9 mg/dL (8.4-10.2) 03/25/20 05:43 Ferritin 743.3 ng/mL (30.0-300.0) H 03/21/20 11:17 Total Bilirubin 0.30 mg/dL (0.1-1.2) 03/21/20 05:02 AST 58 units/L (5-40) H 03/21/20 05:02 ALT 30 units/L (7-56) 03/21/20 05:02 Alkaline Phosphatase 68 units/L (35-129) 03/21/20 05:02 Lactate Dehydrogenase 350 units/L (91-180) H 03/21/20 11:17 C-Reactive Protein 4.10 mg/dL (0.00-1.30) H 03/21/20 11:17 NT-Pro-B Natriuret Pep 133.0 pg/mL (0-900) 03/20/20 10:05 Total Protein 8.5 g/dL (6.3-8.2) H 03/21/20 05:02 Albumin 3.6 g/dL (3.9-5) L 03/21/20 05:02 Albumin/Globulin Ratio 0.7 % 03/21/20 05:02 Procalcitonin < 0.05 ng/mL (<0.15) 03/21/20 11:17 Coronavirus (PCR) Positive (Negative) A 03/20/20 11:17 Microbiology: Microbiology 03/20/20 10:05 Peripheral/Venous Blood Culture - Final NO GROWTH AFTER 5 DAYS 03/20/20 10:05 Peripheral/Venous Blood Culture - Final NO GROWTH AFTER 5 DAYS Fair/IV: Voiding Method Urinal IV Catheter Type [Left INT / Saline Lock Antecubital] Active Medications - Current Medications Current Medications: Generic Name Dose Route Start Last Admin Trade Name Freq PRN Reason Stop Dose Admin Acetaminophen 650 mg 03/20/20 12:00 03/20/20 22:08 Tylenol PO 650 mg Q4H PRN Administration Pain MILD(1-3)/Fever >100.5/MORGAN Dexamethasone 6 mg 03/25/20 10:00 03/25/20 09:28 Decadron PO 03/30/20 09:59 6 mg QDAY NAA Administration Enoxaparin Sodium 40 mg 03/21/20 22:00 03/24/20 22:04 Enoxaparin SUB-Q 40 mg QDAY@2200 NAA Administration Protocol Hydralazine HCl 50 mg 03/25/20 08:45 03/25/20 14:35 Apresoline PO 50 mg Q8HR NAA Administration REMDESIVIR 100 mg/ Sodium 250 mls @ 500 mls/hr 03/23/20 21:00 03/24/20 22:04 Chloride IV 03/26/20 21:29 500 mls/hr Q24HR@2100 NAA Administration Labetalol HCl 10 mg 03/21/20 18:55 03/25/20 06:46 Labetalol IV 10 mg Q3H PRN Administration Hypertension Nifedipine 90 mg 03/25/20 10:00 03/25/20 09:29 Procardia Xl PO 90 mg QDAY NAA Administration Ondansetron HCl 4 mg 03/20/20 12:00 Zofran IV Q8H PRN Nausea And Vomiting Sodium Chloride 10 ml 03/20/20 22:00 03/25/20 09:29 Sodium Chloride Flush Syringe 10 Ml IV 10 ml BID NAA Administration Sodium Chloride 10 ml 03/20/20 12:00 03/24/20 05:36 Sodium Chloride Flush Syringe 10 Ml IV 10 ml PRN PRN Administration LINE FLUSH Sodium Chloride 50 ml 03/22/20 17:00 03/24/20 22:04 Nacl 0.9% IV 03/26/20 21:01 50 ml Q24HR@2100 NAA Administration
[2020-03-25] MEDS ORDERED: ENALAPRILAT 2.5 MG/2 ML INJ IV PRN (18:00)
[2020-03-25] MEDS: ENOXAPARIN 40 MG/0.4 ML INJ SUB-Q SCH (23:16)
[2020-03-25] MEDS: SODIUM CHLORIDE 0.9% 50 ML IVPB IV SCH (23:16)
[2020-03-25] MEDS: REMDESIVIR 100 MG in SODIUM CHLORIDE 0.9% 250ML 250 ML IV SCH (23:17)
[2020-03-26] MEDS: hydrALAZINE 25 MG TAB PO SCH (05:40)
[2020-03-26] MEDS ORDERED: hydrALAZINE 25 MG TAB PO SCH (07:38)
[2020-03-26] MEDS: DEXAMETHASONE 4 MG TAB PO SCH (09:25)
[2020-03-26] MEDS: NIFEdipine XL 90 MG TAB PO SCH (09:26)
--- NOTE | 2020-03-26 12:16 | Progress Note ---
Assessment and Plan Cultures: SARS CoV2 PCR: Positive A/P: 64-year-old male with obesity hypoventilation syndrome, hypertension : #Bilateral pneumonia: Secondary to COVID-19 #Acute hypoxic respiratory failure: On oxygen supplementation Recs: Continue steroids for at least 10 days IV remdesivir for 5 days ordered. Monitor hepatic and renal function. Last day today. prophylactic anticoagulation based on d-dimer per hospital protocol trend ferritin, LDH, d-dimer, CRP every 2-3 days for risk stratification and to assess disease progression Okay to discharge from infectious disease perspective when stable from a respiratory standpoint. Tirso Woods MD [facility] O: [phone] F: [phone] Subjective Date of service: 03/26/20 Principal diagnosis: Shortness of breath Interval history: Afebrile, white count slightly elevated at 13.4. No acute changes. Objective - Exam Narrative Exam: Physical exam deferred due to PPE conservation strategy. Please refer to primary team's note. - Constitutional Vitals: Vital Signs Temp Pulse Resp BP Pulse Ox 98.2 F 78 36 H 180/104 92 03/26/20 04:43 03/26/20 05:40 03/26/20 04:43 03/26/20 05:40 03/26/20 04:43 Temperature -Last 24 Hours Temperature 98.2 F Temperature 98.2 F Temperature 97.0 F - Labs CBC & Chem 7: 03/25/20 05:43 03/25/20 05:43
[2020-03-26] MEDS: VALSARTAN 160MG TAB PO SCH (15:35)
[2020-03-26] MEDS: hydrALAZINE 100 MG TAB PO SCH ×2 (15:36→23:22)
--- NOTE | 2020-03-26 15:46 | Progress Note ---
<MANOHAR CORONADO - Last Filed: 03/26/20 15:48> Assessment and Plan - Patient Problems (1) Pneumonia due to COVID-19 virus Current Visit: Yes Status: Acute Plan to address problem: 03/20 coronavirus PCR positive 03/20 CXR shows bilateral patchy areas of pulmonary opacity which could represent pneumonic infiltrate Infectious disease consulted Supplemental oxygenation as needed Prone to sleep OOB 3 times daily Empiric antibiotic therapy discontinued due to low procalcitonin Monitor inflammatory markers Contact/droplet precautions Remdesivir therapy 03/23 through 03/26 Pulmonary hygiene Ambulatory SPO2 to assess for need to DC with oxygen at home (2) Acute hypoxemic respiratory failure Current Visit: Yes Status: Acute Plan to address problem: Supplemental oxygenation as needed Continue bronchodilator Pulmonary hygiene 03/26 ambulatory SPO2 dropped into the 80s, may need to discharge with home oxygen (3) Hypertension Current Visit: Yes Status: Chronic Plan to address problem: Nifedipine and Procardia, titrate as needed Blood pressure monitoring per protocol As needed vasotec for SBP >160 03/26 valsartan initiated for persistent hypertension (4) Obesity hypoventilation syndrome Current Visit: Yes Status: Chronic Plan to address problem: Supplemental oxygenation as needed Follow-up outpatient with pulmonology for sleep study and PFTs Weight management with increase physical activity and dietary changes (5) DVT prophylaxis Current Visit: Yes Status: Acute Plan to address problem: SCDs to bilateral lower extremities while in bed Lovenox subcu History Interval history: 64 YO Male with Obesity Hypoventilation Syndrome, HTN presented with shortness of breath over the past 3 to 4 days, dyspnea with exertion, decreased exercise tolerance, fatigue, malaise, muscle aches, and dry cough on 03/20. Patient was found to have a pulse oximetry of 87% with exertion on room air which is consistent with acute hypoxemic respiratory failure. Patient chest x-ray showed evidence of bilateral pneumonia. Patient admitted to medical floor and initiated on pneumonia protocol as well as coronavirus protocol. Infectious disease was consulted. His COVID-19 PCR was positive 03/20. Today is his last day of remdesivir therapy, he remains on supplemental oxygenations and SpO2 on ambulation decreased to the high 80s. Will repeat tomorrow and may need to DC on home oxygen. ID has cleared for DC. : Remains on supplemental oxygenation and he states that he now feels much better 03/25: Methylprednisone changed to p.o. dexamethasone p.o. 03/24: 4L NC with no active distress 03/23: 4 L nasal cannula with reported increased shortness of breath with exertion 03/22: Initiated remdesivir therapy and discontinued antibiotic therapy 03/20: methylprednisone IV every 8 hours, COVID 19 PCR positive Hospitalist Physical - Physical exam Narrative exam: PE not conducted in attempt to conserve PPE and exposure to COVID-19 - Constitutional Vitals: Temp Pulse Resp BP Pulse Ox 97.9 F 94 H 20 175/104 91 03/26/20 11:23 03/26/20 11:23 03/26/20 11:23 03/26/20 11:23 03/26/20 11:23 General appearance: Present: no acute distress, well-nourished Results - Labs CBC & Chem 7: 03/25/20 05:43 03/25/20 05:43 Labs: Laboratory Last Values WBC 13.4 K/mm3 (4.5-11.0) H 03/25/20 05:43 RBC 5.75 M/mm3 (3.65-5.03) H 03/25/20 05:43 Hgb 14.9 gm/dl (11.8-15.2) 03/25/20 05:43 Hct 46.8 % (35.5-45.6) H 03/25/20 05:43 MCV 81 fl (84-94) L 03/25/20 05:43 MCH 26 pg (28-32) L 03/25/20 05:43 MCHC 32 % (32-34) 03/25/20 05:43 RDW 14.6 % (13.2-15.2) 03/25/20 05:43 Plt Count 525 K/mm3 (140-440) H 03/25/20 05:43 Lymph % (Auto) 8.1 % (13.4-35.0) L 03/25/20 05:43 [place] % (Auto) 8.4 % (0.0-7.3) H 03/25/20 05:43 Eos % (Auto) 0.0 % (0.0-4.3) 03/25/20 05:43 Baso % (Auto) 0.1 % (0.0-1.8) 03/25/20 05:43 Lymph # (Auto) 1.1 K/mm3 (1.2-5.4) L 03/25/20 05:43 [place] # (Auto) 1.1 K/mm3 (0.0-0.8) H 03/25/20 05:43 Eos # (Auto) 0.0 K/mm3 (0.0-0.4) 03/25/20 05:43 Baso # (Auto) 0.0 K/mm3 (0.0-0.1) 03/25/20 05:43 Seg Neutrophils % 83.4 % (40.0-70.0) H 03/25/20 05:43 Seg Neutrophils # 11.2 K/mm3 (1.8-7.7) H 03/25/20 05:43 D-Dimer 456.87 ng/mlDDU (0-234) H 03/25/20 05:43 Sodium 142 mmol/L (137-145) 03/25/20 05:43 Potassium 4.9 mmol/L (3.6-5.0) 03/25/20 05:43 Chloride 106.7 mmol/L (98-107) 03/25/20 05:43 Carbon Dioxide 20 mmol/L (22-30) L 03/25/20 05:43 Anion Gap 20 mmol/L 03/25/20 05:43 BUN 29 mg/dL (9-20) H 03/25/20 05:43 Creatinine 1.0 mg/dL (0.8-1.3) 03/25/20 05:43 Estimated GFR > 60 ml/min 03/25/20 05:43 BUN/Creatinine Ratio 29 % 03/25/20 05:43 Glucose 206 mg/dL (75-100) H 03/25/20 05:43 Calcium 8.9 mg/dL (8.4-10.2) 03/25/20 05:43 Ferritin 743.3 ng/mL (30.0-300.0) H 03/21/20 11:17 Total Bilirubin 0.30 mg/dL (0.1-1.2) 03/21/20 05:02 AST 58 units/L (5-40) H 03/21/20 05:02 ALT 30 units/L (7-56) 03/21/20 05:02 Alkaline Phosphatase 68 units/L (35-129) 03/21/20 05:02 Lactate Dehydrogenase 350 units/L (91-180) H 03/21/20 11:17 C-Reactive Protein 4.10 mg/dL (0.00-1.30) H 03/21/20 11:17 NT-Pro-B Natriuret Pep 133.0 pg/mL (0-900) 03/20/20 10:05 Total Protein 8.5 g/dL (6.3-8.2) H 03/21/20 05:02 Albumin 3.6 g/dL (3.9-5) L 03/21/20 05:02 Albumin/Globulin Ratio 0.7 % 03/21/20 05:02 Procalcitonin < 0.05 ng/mL (<0.15) 03/21/20 11:17 Coronavirus (PCR) Positive (Negative) A 03/20/20 11:17 Microbiology: Microbiology 03/20/20 10:05 Peripheral/Venous Blood Culture - Final NO GROWTH AFTER 5 DAYS 03/20/20 10:05 Peripheral/Venous Blood Culture - Final NO GROWTH AFTER 5 DAYS Fair/IV: Voiding Method Toilet IV Catheter Type [Left INT / Saline Lock Antecubital] Active Medications - Current Medications Current Medications: Generic Name Dose Route Start Last Admin Trade Name Freq PRN Reason Stop Dose Admin Acetaminophen 650 mg 03/20/20 12:00 03/20/20 22:08 Tylenol PO 650 mg Q4H PRN Administration Pain MILD(1-3)/Fever >100.5/MORGAN Dexamethasone 6 mg 03/25/20 10:00 03/26/20 09:25 Decadron PO 03/30/20 09:59 6 mg QDAY NAA Administration Enalaprilat 0.625 mg 03/25/20 18:00 Vasotec IV Q4HR PRN Hypertension Enoxaparin Sodium 40 mg 03/21/20 22:00 03/25/20 23:16 Enoxaparin SUB-Q 40 mg QDAY@2200 NAA Administration Protocol Hydralazine HCl 100 mg 03/26/20 14:00 03/26/20 15:36 Apresoline PO 100 mg Q8HR NAA Administration REMDESIVIR 100 mg/ Sodium 250 mls @ 500 mls/hr 03/23/20 21:00 03/25/20 23:17 Chloride IV 03/26/20 21:29 500 mls/hr Q24HR@2100 NAA Administration Labetalol HCl 10 mg 03/21/20 18:55 03/25/20 17:11 Labetalol IV 10 mg Q3H PRN Administration Hypertension Nifedipine 90 mg 03/25/20 10:00 03/26/20 09:26 Procardia Xl PO 90 mg QDAY NAA Administration Ondansetron HCl 4 mg 03/20/20 12:00 Zofran IV Q8H PRN Nausea And Vomiting Sodium Chloride 10 ml 03/20/20 22:00 03/26/20 09:27 Sodium Chloride Flush Syringe 10 Ml IV 10 ml BID NAA Administration Sodium Chloride 10 ml 03/20/20 12:00 03/24/20 05:36 Sodium Chloride Flush Syringe 10 Ml IV 10 ml PRN PRN Administration LINE FLUSH Sodium Chloride 50 ml 03/22/20 17:00 03/25/20 23:16 Nacl 0.9% IV 03/26/20 21:01 50 ml Q24HR@2100 NAA Administration Valsartan 160 mg 03/26/20 14:00 03/26/20 15:35 Diovan PO 160 mg DAILY NAA Administration <NIK CRUZ - Last Filed: 03/27/20 08:05> Hospitalist Physical - Physical exam Narrative exam: VITAL SIGNS: Reviewed. GENERAL: Awake HEAD: No signs of head trauma. EYES: Pupils are equal. Extraocular motions intact. MOUTH: Oropharynx is normal. NECK: No adenopathy, no JVD. CHEST: Chest with diminished breath sounds bilaterally. No wheezes, rales, or rhonchi. CARDIAC: normal S1 and S2, without murmurs, gallops, or rubs. ABDOMEN: Soft, non tender and non distended. No rebound or guarding, and no masses palpated. Bowel Sounds normal. MUSCULOSKELETAL: No edema NEUROLOGIC EXAM: Alert and oriented x3. No focal neurologic deficits SKIN: No obvious lesions - Constitutional Vitals: Temp Pulse Resp BP Pulse Ox 98.8 F 85 20 157/101 96 03/27/20 04:02 03/27/20 04:02 03/27/20 04:02 03/27/20 04:02 03/27/20 04:02 Results - Labs CBC & Chem 7: 12/02/20 06:12 03/27/20 06:12 Labs: Laboratory Last Values WBC 10.5 K/mm3 (4.5-11.0) 03/27/20 06:12 RBC 5.79 M/mm3 (3.65-5.03) H 03/27/20 06:12 Hgb 15.5 gm/dl (11.8-15.2) H 03/27/20 06:12 Hct 46.6 % (35.5-45.6) H 03/27/20 06:12 MCV 81 fl (84-94) L 03/27/20 06:12 MCH 27 pg (28-32) L 03/27/20 06:12 MCHC 33 % (32-34) 03/27/20 06:12 RDW 14.6 % (13.2-15.2) 03/27/20 06:12 Plt Count 482 K/mm3 (140-440) H 03/27/20 06:12 Lymph % (Auto) 8.1 % (13.4-35.0) L 03/25/20 05:43 [place] % (Auto) 8.4 % (0.0-7.3) H 03/25/20 05:43 Eos % (Auto) 0.0 % (0.0-4.3) 03/25/20 05:43 Baso % (Auto) 0.1 % (0.0-1.8) 03/25/20 05:43 Lymph # (Auto) 1.1 K/mm3 (1.2-5.4) L 03/25/20 05:43 [place] # (Auto) 1.1 K/mm3 (0.0-0.8) H 03/25/20 05:43 Eos # (Auto) 0.0 K/mm3 (0.0-0.4) 03/25/20 05:43 Baso # (Auto) 0.0 K/mm3 (0.0-0.1) 03/25/20 05:43 Seg Neutrophils % 83.4 % (40.0-70.0) H 03/25/20 05:43 Seg Neutrophils # 11.2 K/mm3 (1.8-7.7) H 03/25/20 05:43 D-Dimer 650.08 ng/mlDDU (0-234) H 03/27/20 06:12 Sodium 139 mmol/L (137-145) 03/27/20 06:12 Potassium 4.1 mmol/L (3.6-5.0) 03/27/20 06:12 Chloride 108.5 mmol/L (98-107) H 03/27/20 06:12 Carbon Dioxide 19 mmol/L (22-30) L 03/27/20 06:12 Anion Gap 16 mmol/L 03/27/20 06:12 BUN 28 mg/dL (9-20) H 03/27/20 06:12 Creatinine 1.0 mg/dL (0.8-1.3) 03/27/20 06:12 Estimated GFR > 60 ml/min 03/27/20 06:12 BUN/Creatinine Ratio 28 % 03/27/20 06:12 Glucose 158 mg/dL (75-100) H 03/27/20 06:12 Calcium 8.6 mg/dL (8.4-10.2) 03/27/20 06:12 Ferritin 743.3 ng/mL (30.0-300.0) H 03/21/20 11:17 Total Bilirubin 0.30 mg/dL (0.1-1.2) 03/21/20 05:02 AST 58 units/L (5-40) H 03/21/20 05:02 ALT 30 units/L (7-56) 03/21/20 05:02 Alkaline Phosphatase 68 units/L (35-129) 03/21/20 05:02 Lactate Dehydrogenase 350 units/L (91-180) H 03/21/20 11:17 C-Reactive Protein 4.10 mg/dL (0.00-1.30) H 03/21/20 11:17 NT-Pro-B Natriuret Pep 133.0 pg/mL (0-900) 03/20/20 10:05 Total Protein 8.5 g/dL (6.3-8.2) H 03/21/20 05:02 Albumin 3.6 g/dL (3.9-5) L 03/21/20 05:02 Albumin/Globulin Ratio 0.7 % 03/21/20 05:02 Procalcitonin < 0.05 ng/mL (<0.15) 03/21/20 11:17 Coronavirus (PCR) Positive (Negative) A 03/20/20 11:17 Fair/IV: Voiding Method Urinal IV Catheter Type [Left INT / Saline Lock Antecubital] Active Medications - Current Medications Current Medications: Generic Name Dose Route Start Last Admin Trade Name Freq PRN Reason Stop Dose Admin Acetaminophen 650 mg 03/20/20 12:00 03/20/20 22:08 Tylenol PO 650 mg Q4H PRN Administration Pain MILD(1-3)/Fever >100.5/MORGAN Dexamethasone 6 mg 03/25/20 10:00 03/26/20 09:25 Decadron PO 03/30/20 09:59 6 mg QDAY NAA Administration Enalaprilat 0.625 mg 03/25/20 18:00 Vasotec IV Q4HR PRN Hypertension Enoxaparin Sodium 40 mg 03/21/20 22:00 03/26/20 23:23 Enoxaparin SUB-Q 40 mg QDAY@2200 NAA Administration Protocol Hydralazine HCl 100 mg 03/26/20 14:00 03/27/20 05:48 Apresoline PO 100 mg Q8HR NAA Administration Labetalol HCl 10 mg 03/21/20 18:55 03/25/20 17:11 Labetalol IV 10 mg Q3H PRN Administration Hypertension Nifedipine 90 mg 03/25/20 10:00 03/26/20 09:26 Procardia Xl PO 90 mg QDAY NAA Administration Ondansetron HCl 4 mg 03/20/20 12:00 Zofran IV Q8H PRN Nausea And Vomiting Sodium Chloride 10 ml 03/20/20 22:00 03/26/20 23:23 Sodium Chloride Flush Syringe 10 Ml IV 10 ml BID NAA Administration Sodium Chloride 10 ml 03/20/20 12:00 03/24/20 05:36 Sodium Chloride Flush Syringe 10 Ml IV 10 ml PRN PRN Administration LINE FLUSH Valsartan 160 mg 03/26/20 14:00 03/26/20 15:35 Diovan PO 160 mg DAILY NAA Administration
[2020-03-26] MEDS: SODIUM CHLORIDE 0.9% 50 ML IVPB IV SCH (23:22)
[2020-03-26] MEDS: REMDESIVIR 100 MG in SODIUM CHLORIDE 0.9% 250ML 250 ML IV SCH (23:22)
[2020-03-26] MEDS: ENOXAPARIN 40 MG/0.4 ML INJ SUB-Q SCH (23:23)
[2020-03-27] MEDS: hydrALAZINE 100 MG TAB PO SCH ×3 (05:48→21:54)
[2020-03-27 06:43] LABS: Hematocrit 46.6 % (35.5-45.6); Hemoglobin 15.5 gm/dl (11.8-15.2); Mean Corpuscular HGB Conc 33 % (32-34); Mean Corpuscular Volume 81 fl (84-94); Platelet Count 482 K/mm3 (140-440); Red Blood Count 5.79 M/mm3 (3.65-5.03); Red Cell Distribution Width 14.6 % (13.2-15.2)
[2020-03-27 06:57] LABS: BUN/Creatinine Ratio 28; Blood Urea Nitrogen 28 mg/dL (9-20); Calcium 8.6 mg/dL (8.4-10.2); Hemolysis Index 13
[2020-03-27] MEDS: VALSARTAN 160MG TAB PO SCH ×2 (10:40→21:54)
[2020-03-27] MEDS: NIFEdipine XL 90 MG TAB PO SCH (10:41)
[2020-03-27] MEDS: DEXAMETHASONE 4 MG TAB PO SCH (10:41)
--- NOTE | 2020-03-27 16:44 | Progress Note ---
Assessment and Plan Cultures: SARS CoV2 PCR: Positive A/P: 64-year-old male with obesity hypoventilation syndrome, hypertension : #Bilateral pneumonia: Secondary to COVID-19 #Acute hypoxic respiratory failure: On oxygen supplementation Recs: Continue steroids for at least 10 days Completed remdesivir prophylactic anticoagulation based on d-dimer per hospital protocol trend ferritin, LDH, d-dimer, CRP every 2-3 days for risk stratification and to assess disease progression Okay to discharge from infectious disease perspective when stable from a respiratory standpoint. Tirso Woods MD [facility] O: [phone] F: [phone] Subjective Date of service: 03/27/20 Principal diagnosis: Shortness of breath Interval history: Afebrile, normal white count. No acute changes. 4 L nasal cannula. Objective - Exam Narrative Exam: Physical exam deferred due to PPE conservation strategy. Please refer to primary team's note. - Constitutional Vitals: Vital Signs Temp Pulse Resp BP Pulse Ox 97.4 F L 88 22 161/95 94 03/27/20 11:08 03/27/20 11:08 03/27/20 11:08 03/27/20 11:08 03/27/20 11:08 Temperature -Last 24 Hours Temperature 97.4 F Temperature 98.8 F Temperature 98.3 F Temperature 98.7 F - Labs CBC & Chem 7: 03/27/20 06:12 03/27/20 06:12 Labs: Abnormal lab results 03/27/20 03/27/20 03/27/20 Range/Units 06:12 06:12 06:12 RBC 5.79 H (3.65-5.03) M/mm3 Hgb 15.5 H (11.8-15.2) gm/dl Hct 46.6 H (35.5-45.6) % MCV 81 L (84-94) fl MCH 27 L (28-32) pg Plt Count 482 H (140-440) K/mm3 D-Dimer 650.08 H (0-234) ng/mlDDU Chloride 108.5 H (98-107) mmol/L Carbon Dioxide 19 L (22-30) mmol/L BUN 28 H (9-20) mg/dL Glucose 158 H (75-100) mg/dL
--- NOTE | 2020-03-27 17:55 | Progress Note ---
Assessment and Plan - Patient Problems (1) Pneumonia due to COVID-19 virus Current Visit: Yes Status: Acute Plan to address problem: 03/20 coronavirus PCR positive 03/20 CXR shows bilateral patchy areas of pulmonary opacity which could represent pneumonic infiltrate Infectious disease consulted Supplemental oxygenation as needed Prone to sleep OOB 3 times daily Empiric antibiotic therapy discontinued due to low procalcitonin Monitor inflammatory markers Contact/droplet precautions Remdesivir therapy 03/23 through 03/26 Pulmonary hygiene Ambulatory SPO2 to assess for need to DC with oxygen at home Will need to discharge with Eliquis 2.5 twice daily for 30 days (2) Acute hypoxemic respiratory failure Current Visit: Yes Status: Acute Plan to address problem: Supplemental oxygenation as needed Continue bronchodilator Pulmonary hygiene 03/26 ambulatory SPO2 dropped into the 80s, may need to discharge with home oxygen 03/27 SPO2 with ambulation on room air decreased to 91% however the patient was very short of breath and unable to walk greater than 2 minutes. (3) Hypertension Current Visit: Yes Status: Chronic Plan to address problem: Nifedipine and Procardia, titrate as needed Blood pressure monitoring per protocol As needed vasotec for SBP >160 03/26 valsartan initiated for persistent hypertension, titrated up on 03/27 given persistent hypertension (4) Obesity hypoventilation syndrome Current Visit: Yes Status: Chronic Plan to address problem: Supplemental oxygenation as needed Follow-up outpatient with pulmonology for sleep study and PFTs Weight management with increase physical activity and dietary changes (5) DVT prophylaxis Current Visit: Yes Status: Acute Plan to address problem: SCDs to bilateral lower extremities while in bed Lovenox subcu History Interval history: 64 YO Male with Obesity Hypoventilation Syndrome, HTN presented with shortness of breath over the past 3 to 4 days, dyspnea with exertion, decreased exercise tolerance, fatigue, malaise, muscle aches, and dry cough on 03/20. Patient was found to have a pulse oximetry of 87% with exertion on room air which is consistent with acute hypoxemic respiratory failure. Patient chest x-ray showed evidence of bilateral pneumonia. Patient admitted to medical floor and initiated on pneumonia protocol as well as coronavirus protocol. Infectious disease was consulted. His COVID-19 PCR was positive 03/20. Today patient remains on supplemental oxygenation. RN conducted a walk test this afternoon and with ambulation patient's SPO2 decreased to 91% however he was very short of breath and was unable to walk longer than 2 minutes. Will reassess tomorrow and possibly discharge. 04/15: Today is his last day of remdesivir therapy, he remains on supplemental oxygenations and SpO2 on ambulation decreased to the high 80s. Will repeat tomorrow and may need to DC on home oxygen. ID has cleared for DC. : Remains on supplemental oxygenation and he states that he now feels much better 03/25: Methylprednisone changed to p.o. dexamethasone p.o. 03/24: 4L NC with no active distress 03/23: 4 L nasal cannula with reported increased shortness of breath with exertion 03/22: Initiated remdesivir therapy and discontinued antibiotic therapy 03/20: methylprednisone IV every 8 hours, COVID 19 PCR positive Hospitalist Physical - Constitutional Vitals: Temp Pulse Resp BP Pulse Ox 97.4 F L 88 22 161/95 94 03/27/20 11:08 03/27/20 11:08 03/27/20 11:08 03/27/20 11:08 03/27/20 11:08 General appearance: Present: no acute distress, well-nourished - EENT Eyes: Present: PERRL, EOM intact ENT: hearing intact, clear oral mucosa - Neck Neck: Present: normal ROM - Respiratory Respiratory effort: normal Respiratory: bilateral: diminished - Cardiovascular Rhythm: regular Heart Sounds: Present: S1 & S2. Absent: systolic murmur, diastolic murmur - Extremities Extremities: no ischemia, pulses intact, pulses symmetrical, No edema, normal temperature, normal color, Full ROM Peripheral Pulses: within normal limits - Abdominal General gastrointestinal: soft, non-tender, non-distended, normal bowel sounds - Integumentary Integumentary: Present: clear, warm, dry - Psychiatric Psychiatric: appropriate mood/affect, cooperative - Neurologic Neurologic: CNII-XII intact, no focal deficits, moves all extremities Results - Labs CBC & Chem 7: 03/27/20 06:12 03/27/20 06:12 Labs: Laboratory Last Values WBC 10.5 K/mm3 (4.5-11.0) 03/27/20 06:12 RBC 5.79 M/mm3 (3.65-5.03) H 03/27/20 06:12 Hgb 15.5 gm/dl (11.8-15.2) H 03/27/20 06:12 Hct 46.6 % (35.5-45.6) H 03/27/20 06:12 MCV 81 fl (84-94) L 03/27/20 06:12 MCH 27 pg (28-32) L 03/27/20 06:12 MCHC 33 % (32-34) 03/27/20 06:12 RDW 14.6 % (13.2-15.2) 03/27/20 06:12 Plt Count 482 K/mm3 (140-440) H 03/27/20 06:12 Lymph % (Auto) 8.1 % (13.4-35.0) L 03/25/20 05:43 [place] % (Auto) 8.4 % (0.0-7.3) H 03/25/20 05:43 Eos % (Auto) 0.0 % (0.0-4.3) 03/25/20 05:43 Baso % (Auto) 0.1 % (0.0-1.8) 03/25/20 05:43 Lymph # (Auto) 1.1 K/mm3 (1.2-5.4) L 03/25/20 05:43 [place] # (Auto) 1.1 K/mm3 (0.0-0.8) H 03/25/20 05:43 Eos # (Auto) 0.0 K/mm3 (0.0-0.4) 03/25/20 05:43 Baso # (Auto) 0.0 K/mm3 (0.0-0.1) 03/25/20 05:43 Seg Neutrophils % 83.4 % (40.0-70.0) H 03/25/20 05:43 Seg Neutrophils # 11.2 K/mm3 (1.8-7.7) H 03/25/20 05:43 D-Dimer 650.08 ng/mlDDU (0-234) H 03/27/20 06:12 Sodium 139 mmol/L (137-145) 03/27/20 06:12 Potassium 4.1 mmol/L (3.6-5.0) 03/27/20 06:12 Chloride 108.5 mmol/L (98-107) H 03/27/20 06:12 Carbon Dioxide 19 mmol/L (22-30) L 03/27/20 06:12 Anion Gap 16 mmol/L 03/27/20 06:12 BUN 28 mg/dL (9-20) H 03/27/20 06:12 Creatinine 1.0 mg/dL (0.8-1.3) 03/27/20 06:12 Estimated GFR > 60 ml/min 03/27/20 06:12 BUN/Creatinine Ratio 28 % 03/27/20 06:12 Glucose 158 mg/dL (75-100) H 03/27/20 06:12 Calcium 8.6 mg/dL (8.4-10.2) 03/27/20 06:12 Ferritin 743.3 ng/mL (30.0-300.0) H 03/21/20 11:17 Total Bilirubin 0.30 mg/dL (0.1-1.2) 03/21/20 05:02 AST 58 units/L (5-40) H 03/21/20 05:02 ALT 30 units/L (7-56) 03/21/20 05:02 Alkaline Phosphatase 68 units/L (35-129) 03/21/20 05:02 Lactate Dehydrogenase 350 units/L (91-180) H 03/21/20 11:17 C-Reactive Protein 4.10 mg/dL (0.00-1.30) H 03/21/20 11:17 NT-Pro-B Natriuret Pep 133.0 pg/mL (0-900) 03/20/20 10:05 Total Protein 8.5 g/dL (6.3-8.2) H 03/21/20 05:02 Albumin 3.6 g/dL (3.9-5) L 03/21/20 05:02 Albumin/Globulin Ratio 0.7 % 03/21/20 05:02 Procalcitonin < 0.05 ng/mL (<0.15) 03/21/20 11:17 Coronavirus (PCR) Positive (Negative) A 03/20/20 11:17 Fair/IV: Voiding Method Toilet IV Catheter Type [Left INT / Saline Lock Antecubital] Active Medications - Current Medications Current Medications: Generic Name Dose Route Start Last Admin Trade Name Freq PRN Reason Stop Dose Admin Acetaminophen 650 mg 03/20/20 12:00 03/20/20 22:08 Tylenol PO 650 mg Q4H PRN Administration Pain MILD(1-3)/Fever >100.5/MORGAN Dexamethasone 6 mg 03/25/20 10:00 03/27/20 10:41 Decadron PO 03/30/20 09:59 6 mg QDAY NAA Administration Enalaprilat 0.625 mg 03/25/20 18:00 Vasotec IV Q4HR PRN Hypertension Enoxaparin Sodium 40 mg 03/21/20 22:00 03/26/20 23:23 Enoxaparin SUB-Q 40 mg QDAY@2200 NAA Administration Protocol Hydralazine HCl 100 mg 03/26/20 14:00 03/27/20 16:19 Apresoline PO 100 mg Q8HR NAA Administration Labetalol HCl 10 mg 03/21/20 18:55 03/25/20 17:11 Labetalol IV 10 mg Q3H PRN Administration Hypertension Nifedipine 90 mg 03/25/20 10:00 03/27/20 10:41 Procardia Xl PO 90 mg QDAY NAA Administration Ondansetron HCl 4 mg 03/20/20 12:00 Zofran IV Q8H PRN Nausea And Vomiting Sodium Chloride 10 ml 03/20/20 22:00 03/27/20 10:42 Sodium Chloride Flush Syringe 10 Ml IV 10 ml BID NAA Administration Sodium Chloride 10 ml 03/20/20 12:00 03/24/20 05:36 Sodium Chloride Flush Syringe 10 Ml IV 10 ml PRN PRN Administration LINE FLUSH Valsartan 160 mg 03/26/20 14:00 03/27/20 10:40 Diovan PO 160 mg DAILY NAA Administration Nutrition/Malnutrition Assess - Dietary Evaluation Nutrition/Malnutrition Findings: Nutrition Notes Start: 03/27/20 12:42 Freq: Status: Active Protocol: Document 03/27/20 12:42 AB (Rec: 03/27/20 13:05 AB [id number]) Co-Sign 03/27/20 12:42 MK Nutrition Notes Need for Assessment generated from: LOS Initial or Follow up Assessment Current Diagnosis Hypertension Other Pertinent Diagnosis pneumonia, acute respiratory failure Current Diet Cardiac/consistent carb Labs/Tests BG 158 Pertinent Medications Decadron Height 5 ft 11 in Weight 99 kg Usual Body Weight 100 kg [place] Body Weight (kg) 78.18 BMI 30.4 Intake Prior to Admission Good Weight Status Obese Subjective/Other Information Pt stated to have a low appetite d/t COVID 19 symptoms , which has been going on for a week. Pt stated that before symptoms started, he had no problems with eating. Pt reports eating 50% of meals. Percent of energy/protein needs met: 48%/54% Burn Absent Trauma Absent GI Symptoms None Food Allergy No Current % PO Fair (50-74%) Minimum of two criteria No physical signs of malnutrition #1 Nutrition Diagnosis Inadequate oral intake Etiology COVID (+) and loss of appetite As Evidenced by Signs and Symptoms Eating 50% of meals Is patient on ventilator? No Is Patient Ambulatory and/or Out of Bed Yes REE-([facility]-ambulatory/OOB) [ 2355.769 NUTR.[id number]] Kcal/Kg value to use for calculation 21 Approximate Energy Requirements Using 9 kcal/Kg Calculation Used for Recommendations Kcal/kg Additional Notes Protein: 79-99 g (.8-1 g/kg) Fluid: 1 ml/kcal Nutrition Intervention Change Diet Order: Continue current Add Supplement/Snack (indicate name/kcal Ensure Enlive daily /protein ) Provides kCal: 350 Provides Protein (gm) 20 Goal #1 Consume 80% of energy and protein needs via PO and ONS. Anticipated Discharge Needs: Cardiac/Consistent Carb Follow-Up By: 03/29/20 Additional Comments F/U for intakes and ONS tolerance
[2020-03-27] MEDS: ENOXAPARIN 40 MG/0.4 ML INJ SUB-Q SCH (22:16)
[2020-03-28] MEDS: hydrALAZINE 100 MG TAB PO SCH ×2 (06:15→13:51)
[2020-03-28 07:19] LABS: BUN/Creatinine Ratio 28; Blood Urea Nitrogen 31 mg/dL (9-20); Calcium 8.5 mg/dL (8.4-10.2); Hemolysis Index 3
[2020-03-28] MEDS ORDERED: guaiFENesin 200 MG TAB PO PRN (07:49)
[2020-03-28] MEDS ORDERED: ASCORBIC ACID 500 MG TAB PO SCH (10:00)
[2020-03-28] MEDS ORDERED: ZINC SULFATE 220 MG CAP PO SCH (10:00)
[2020-03-28] MEDS: NIFEdipine XL 90 MG TAB PO SCH (10:02)
[2020-03-28] MEDS: VALSARTAN 160MG TAB PO SCH (10:02)
[2020-03-28] MEDS: DEXAMETHASONE 4 MG TAB PO SCH (10:02)
--- NOTE | 2020-03-28 12:43 | Discharge Summary ---
Providers - Providers Date of Admission: 03/20/20 11:58 Attending physician: NIK CRUZ 03/21/20 08:40 Consult to Physician [CONS] Routine Comment: Consulting Provider: EDWIN PERKINS Physician Instructions: Reason For Exam: susp covid Primary care physician: CROSSWORD PUZZLE [employer]KER Hospitalization Condition: Stable Hospital course: 64 YO Male with Obesity Hypoventilation Syndrome, HTN presented with shortness of breath over the past 3 to 4 days, dyspnea with exertion, decreased exercise tolerance, fatigue, malaise, muscle aches, and dry cough on 03/20. Patient was found to have a pulse oximetry of 87% with exertion on room air which is consistent with acute hypoxemic respiratory failure. Patient chest x-ray showed evidence of bilateral pneumonia. Patient admitted to medical floor and initiated on pneumonia protocol as well as coronavirus protocol. Infectious disease was consulted. His COVID-19 PCR was positive 03/20 and he was initiated on methylprednisone IV. On 03/22 he was initiated remdesivir therapy for 5 days which he completed and his antibiotic therapy was discontinued given normal lab work. Patient remains on supplemental oxygenation throughout his hospital stay and his steroids were changed to dexamethasone 6 mg tablets daily by mouth. On 03/26 he completed his remdesivir therapy and his ambulation SPO2 decreased into the high 80s. On repeat his SPO2 decreased to 91% on room air however is extremely short of breath and today on 03/28 repeat SPO2 on ambulation was in the 80s again. Patient will be discharged home with a 2 days of dexamethasone to complete his 10-day course, vitamin C, vitamin D, zinc, Eliquis 2.5 mg twice a day by mouth for 30 days for prophylactic anticoagulation and with an oxygen tank. He will need to follow-up with his primary care physician within 1 to 2 weeks of discharge for reevaluation of the need of oxygen. Assessment and Plan - Patient Problems (1) Pneumonia due to COVID-19 virus Current Visit: Yes Status: Acute Plan to address problem: 03/20 coronavirus PCR positive 03/20 CXR shows bilateral patchy areas of pulmonary opacity which could represent pneumonic infiltrate Infectious disease consulted Supplemental oxygenation as needed Prone to sleep OOB 3 times daily Empiric antibiotic therapy discontinued due to low procalcitonin Monitor inflammatory markers Contact/droplet precautions Remdesivir therapy 03/23 through 03/26 Pulmonary hygiene Ambulatory SPO2 to assess for need to DC with oxygen at home Will need to discharge with Eliquis 2.5 twice daily for 30 days (2) Acute hypoxemic respiratory failure Current Visit: Yes Status: Acute Plan to address problem: Supplemental oxygenation as needed Continue bronchodilator Pulmonary hygiene 03/26 ambulatory SPO2 dropped into the 80s, may need to discharge with home oxygen 03/27 SPO2 with ambulation on room air decreased to 91% however the patient was very short of breath and unable to walk greater than 2 minutes. 03/28 ambulation SPO2 decreased to high 80s. (3) Hypertension Current Visit: Yes Status: Chronic Plan to address problem: Nifedipine and Procardia, titrate as needed Blood pressure monitoring per primary care physician instructions As needed vasotec for SBP >160 03/26 valsartan initiated for persistent hypertension, titrated up on 03/27 given persistent hypertension (4) Obesity hypoventilation syndrome Current Visit: Yes Status: Chronic Plan to address problem: Supplemental oxygenation as needed Follow-up outpatient with pulmonology for sleep study and PFTs Weight management with increase physical activity and dietary changes (5) DVT prophylaxis Current Visit: Yes Status: Acute Plan to address problem: Eliquis 2.5 twice daily for 30 days Disposition: DC-01 TO HOME OR SELFCARE Time spent for discharge: 35 Core Measure Documentation - Palliative Care Palliative Care/ Comfort Measures: Not Applicable - Core Measures Any of the following diagnoses?: none Exam - Constitutional Vitals: Temp Pulse Resp BP Pulse Ox 97.7 F 79 20 141/95 97 03/28/20 05:02 03/28/20 05:02 03/28/20 05:02 03/28/20 05:02 03/28/20 10:00 General appearance: Present: no acute distress - EENT Eyes: Present: PERRL, EOM intact ENT: hearing intact, clear oral mucosa - Neck Neck: Present: supple, normal ROM - Respiratory Respiratory effort: normal Respiratory: bilateral: diminished - Cardiovascular Rhythm: regular Heart Sounds: Present: S1 & S2. Absent: systolic murmur, diastolic murmur - Extremities Extremities: no ischemia, pulses intact, pulses symmetrical, No edema, normal temperature, normal color, Full ROM Peripheral Pulses: within normal limits - Abdominal General gastrointestinal: Present: soft, non-tender, non-distended, normal bowel sounds - Integumentary Integumentary: Present: clear, warm, dry - Musculoskeletal Musculoskeletal: strength equal bilaterally - Psychiatric Psychiatric: appropriate mood/affect, cooperative - Neurologic Neurologic: CNII-XII intact, no focal deficits, moves all extremities Plan Activity: advance as tolerated Diet: low cholesterol, low salt Special Instructions: record daily BP diary Durable Medical Equipment Needed Upon Discharge: Oxygen Additional Instructions: Present to nearest emergency department or contact your primary care physician if you experience worsening symptoms. You will be discharged with dexamethasone to complete your 10-day therapy, Eliquis 2.5 mg twice a day for 30 days for anticoagulation, vitamin C, vitamin D, and zinc. Please follow the Covid 19 guidelines set forth by the CDC and will be contained within the discharge booklet to RN will provide you. You will be discharged with oxygen and you will need to follow-up with your primary care physician within 1 to 2 weeks of discharge for reevaluation of oxygen needs. You can also use the [facility] which I have mentioned to you ([facility] and [facility]). Follow up with: PRIMARY CARE, [Primary Care Provider] - 3-5 Days Prescriptions: hydrALAZINE [Apresoline TAB] 100 mg PO Q8HR #90 tab Dexamethasone [Decadron] 6 mg PO QDAY #2 tablet Valsartan [Diovan] 160 mg PO BID #60 tablet Apixaban [Eliquis] 2.5 mg PO BID 30 Days #60 tablet NIFEdipine XL [Procardia Xl] 90 mg PO QDAY #30 tablet guaiFENesin [Robitussin] 200 mg PO Q6H PRN #30 tablet PRN Reason: Cough Ascorbic Acid [Vitamin C] 500 mg PO QDAY #30 tablet Zinc Sulfate 220 mg PO QDAY #30 capsule
--- NOTE | 2020-03-28 12:53 | Vascular Lab Report ---
DUPLEX DOPPLER LOWER EXTREMITY VEINS, BILATERAL INDICATION / CLINICAL INFORMATION: Acute hypoxic respiratory failure. TECHNIQUE: Duplex doppler imaging was performed through the veins of both lower extremities using venous khadra dali and other maneuvers. COMPARISON: None available. FINDINGS: RIGHT COMMON FEMORAL VEIN: Negative. RIGHT FEMORAL VEIN: Negative. RIGHT POPLITEAL VEIN: Negative. RIGHT CALF VEINS: Negative. LEFT COMMON FEMORAL VEIN: Negative. LEFT FEMORAL VEIN: Negative. LEFT POPLITEAL VEIN: Negative. LEFT CALF VEINS: Negative. ADDITIONAL FINDINGS: None. IMPRESSION: 1. No sonographic evidence for DVT in either lower extremity. Signer Name: Marv Jack MD Signed: 03/28/2020 12:49 PM Workstation Name: [id number]
--- NOTE | 2020-03-28 13:11 | Progress Note ---
Assessment and Plan Cultures: SARS CoV2 PCR: Positive A/P: 64-year-old male with obesity hypoventilation syndrome, hypertension : #Bilateral pneumonia: Secondary to COVID-19 #Acute hypoxic respiratory failure: On oxygen supplementation Recs: Continue steroids for at least 10 days Completed remdesivir prophylactic anticoagulation based on d-dimer per hospital protocol trend ferritin, LDH, d-dimer, CRP every 2-3 days for risk stratification and to assess disease progression Okay to discharge from infectious disease perspective when stable from a respiratory standpoint. Tirso Woods MD [facility] O: [phone] F: [phone] Subjective Date of service: 03/28/20 Principal diagnosis: Shortness of breath Interval history: Afebrile white count is returned to normal. Objective - Exam Narrative Exam: Physical exam deferred due to PPE conservation strategy. Please refer to primary team's note. - Constitutional Vitals: Vital Signs Temp Pulse Resp BP Pulse Ox 97.7 F 79 20 141/95 97 03/28/20 05:02 03/28/20 05:02 03/28/20 05:02 03/28/20 05:02 03/28/20 10:00 Temperature -Last 24 Hours Temperature 97.7 F Temperature 97.8 F Temperature 98.5 F - Labs CBC & Chem 7: 03/27/20 06:12 03/28/20 04:45 Labs: Abnormal lab results 03/28/20 Range/Units 04:45 Chloride 108.3 H (98-107) mmol/L Carbon Dioxide 18 L (22-30) mmol/L BUN 31 H (9-20) mg/dL Glucose 140 H (75-100) mg/dL
[2020-03-28 13:53] VITALS: BP 135/87
== END 2020-03-28 18:40 | disposition home or self-care (01) | DRG 177 ==
LOC: ED 07:45 → 3A 11:58
PROVIDERS: ADMIT Internal Medicine; ATTEND Internal Medicine
PROC: XW033E5 Introduction of Remdesivir Anti-infective into Peripheral Vein, Percutaneous Approach, New Technology Group 5 (ICD-10-PCS; principal; 2020-03-22)
DX: U07.1 COVID-19 (principal); J96.01 Acute respiratory failure with hypoxia; J12.89 Other viral pneumonia; E66.2 Morbid (severe) obesity with alveolar hypoventilation; Z68.30 Body mass index [BMI] 30.0-30.9, adult; I10 Essential (primary) hypertension
CPT/HCPCS: 36415; 71046; 80048; 80053; 82728; 82947; 83615; 83880; 84145; 85025; 85027; 85379; 86140; 87040; 93005; 93970; 94760; 96374; 96375; G0378; J0456; J0696; J1100; J1644; J1650; J2405; J2920; J7050; J8540; U0003

== ENCOUNTER 2020-07-11 08:49 | Emergency (ER) | payer SELFPAY ==
--- NOTE | 2020-07-11 10:51 | Emergency Department Report ---
ED General Adult HPI - General Stated complaint: BP HIGH Time Seen by Provider: 07/11/20 10:06 Source: patient Mode of arrival: Ambulatory Limitations: No Limitations - History of Present Illness Initial comments: Chief complaint: "My blood pressure is high." HPI: This is a 65-year-old male with history of hypertension who presents with elevated blood pressure reading at urgent care clinic. He decided to obtain primary care at clinic because he does not have a PCP or health insurance. He has been in his normal state of health. He denies any symptoms. He denies headache, blurry vision, chest pain, cough, abdominal pain. He was discharged with prescriptions for hydralazine valsartan nifedipine. He was able to afford his medications. -: Gradual, month(s) (He has been without blood pressure medication for several months.) Severity scale (0 -10): 0 Improves with: none Worsens with: none Associated Symptoms: denies other symptoms Treatments Prior to Arrival: none - Related Data Previous Rx's Medication Instructions Recorded Last Taken Type Acetaminophen [Acetaminophen TAB] 650 mg PO Q4H PRN tablet 03/28/20 Unknown Rx Apixaban [Eliquis] 2.5 mg PO BID 30 Days #60 tablet 03/28/20 Unknown Rx Ascorbic Acid [Vitamin C] 500 mg PO QDAY #30 tablet 03/28/20 Unknown Rx Dexamethasone [Decadron] 6 mg PO QDAY #2 tablet 03/28/20 Unknown Rx NIFEdipine XL [Procardia Xl] 90 mg PO QDAY #30 tablet 03/28/20 Unknown Rx Valsartan [Diovan] 160 mg PO BID #60 tablet 03/28/20 Unknown Rx Zinc Sulfate 220 mg PO QDAY #30 capsule 03/28/20 Unknown Rx guaiFENesin [Robitussin] 200 mg PO Q6H PRN #30 tablet 03/28/20 Unknown Rx hydrALAZINE [Apresoline TAB] 100 mg PO Q8HR #90 tab 03/28/20 Unknown Rx NIFEdipine XL [Procardia Xl] 90 mg PO QDAY 90 Days #180 tablet 07/11/20 Unknown Rx Valsartan [Diovan] 160 mg PO BID 90 Days #180 tablet 07/11/20 Unknown Rx hydrALAZINE [Apresoline TAB] 100 mg PO TID 90 Days #270 tab 07/11/20 Unknown Rx Allergies Allergy/AdvReac Type Severity Reaction Status Date / Time No Known Allergies Allergy Verified 07/11/20 08:50 ED Review of Systems ROS: Stated complaint: BP HIGH Other details as noted in HPI Comment: All other systems reviewed and negative Constitutional: denies: fever, malaise Respiratory: denies: cough, shortness of breath Cardiovascular: denies: chest pain Gastrointestinal: denies: abdominal pain Neurological: denies: headache ED Past Medical Hx - Past Medical History Previous Medical History?: Yes Hx Hypertension: Yes Hx Congestive Heart Failure: No Hx Diabetes: No Hx Asthma: No Hx COPD: No Hx HIV: No - Surgical History Past Surgical History?: Yes Additional Surgical History: right ankle - Social History Smoking Status: Never Smoker Substance Use Type: None - Medications Home Medications: Home Medications Medication Instructions Recorded Confirmed Last Taken Type Acetaminophen [Acetaminophen TAB] 650 mg PO Q4H PRN tablet 03/28/20 Unknown Rx Apixaban [Eliquis] 2.5 mg PO BID 30 Days #60 tablet 03/28/20 Unknown Rx Ascorbic Acid [Vitamin C] 500 mg PO QDAY #30 tablet 03/28/20 Unknown Rx Dexamethasone [Decadron] 6 mg PO QDAY #2 tablet 03/28/20 Unknown Rx NIFEdipine XL [Procardia Xl] 90 mg PO QDAY #30 tablet 03/28/20 Unknown Rx Valsartan [Diovan] 160 mg PO BID #60 tablet 03/28/20 Unknown Rx Zinc Sulfate 220 mg PO QDAY #30 capsule 03/28/20 Unknown Rx guaiFENesin [Robitussin] 200 mg PO Q6H PRN #30 tablet 03/28/20 Unknown Rx hydrALAZINE [Apresoline TAB] 100 mg PO Q8HR #90 tab 03/28/20 Unknown Rx NIFEdipine XL [Procardia Xl] 90 mg PO QDAY 90 Days #180 tablet 07/11/20 Unknown Rx Valsartan [Diovan] 160 mg PO BID 90 Days #180 tablet 07/11/20 Unknown Rx hydrALAZINE [Apresoline TAB] 100 mg PO TID 90 Days #270 tab 07/11/20 Unknown Rx ED Physical Exam - General Limitations: No Limitations General appearance: alert, in no apparent distress - Head Head exam: Present: atraumatic, normocephalic - Eye Eye exam: Present: normal appearance - ENT ENT exam: Present: mucous membranes moist - Neck Neck exam: Present: normal inspection, full ROM - Respiratory Respiratory exam: Present: normal lung sounds bilaterally. Absent: respiratory distress, wheezes, rales, rhonchi - Cardiovascular Cardiovascular Exam: Present: regular rate, normal rhythm, normal heart sounds. Absent: systolic murmur, diastolic murmur, rubs, gallop - GI/Abdominal GI/Abdominal exam: Present: soft, normal bowel sounds. Absent: distended, tenderness, guarding, rebound - Rectal Rectal exam: Present: deferred - Extremities Exam Extremities exam: Present: normal inspection - Neurological Exam Neurological exam: Present: alert, oriented X3, normal gait - Psychiatric Psychiatric exam: Present: normal affect, normal mood - Skin Skin exam: Present: warm, dry, intact, normal color. Absent: rash ED Course Vital Signs 07/11/20 07/11/20 07/11/20 08:50 09:04 09:15 Temperature 98.8 F Pulse Rate 107 H 94 H Respiratory 20 22 Rate Blood Pressure 211/161 206/131 O2 Sat by Pulse 96 97 99 Oximetry 07/11/20 07/11/20 07/11/20 09:31 09:45 10:09 Temperature Pulse Rate 94 H 89 93 H Respiratory 28 H 27 H 17 Rate Blood Pressure 211/131 204/127 O2 Sat by Pulse 98 99 98 Oximetry 07/11/20 10:30 Temperature Pulse Rate 98 H Respiratory Rate Blood Pressure 205/144 O2 Sat by Pulse Oximetry ED Medical Decision Making - Medical Decision Making Asymptomatic hypertensive urgency: Patient was given 1 dose of p.o. labetalol in the emergency department. Further evaluation not clinically indicated. I have given patient 90-day prescriptions nifedipine valsartan hydralazine. Patient is discharged home. Critical care attestation.: If time is entered above; I have spent that time in minutes in the direct care of this critically ill patient, excluding procedure time. ED Disposition Clinical Impression: Asymptomatic hypertensive urgency Disposition: DC-01 TO HOME OR SELFCARE Is pt being admited?: No Does the pt Need Aspirin: No Condition: Stable Instructions: Hypertension, Adult, [id number], Managing Your Hypertension Prescriptions: hydrALAZINE [Apresoline TAB] 100 mg PO TID 90 Days #270 tab Valsartan [Diovan] 160 mg PO BID 90 Days #180 tablet NIFEdipine XL [Procardia Xl] 90 mg PO QDAY 90 Days #180 tablet Referrals: APRIL RIBEIRO MD [Staff Physician] - 3-5 Days
[2020-07-11 11:43] VITALS: BP 180/111
== END 2020-07-11 11:43 | disposition home or self-care (01) ==
LOC: ED 08:49
DX: I16.0 Hypertensive urgency (principal); Z79.899 Other long term (current) drug therapy
CPT/HCPCS: 99283